=== PATIENT | male | born 1980 | race African-American/Black ===

== ENCOUNTER 2017-02-19 17:23 | Emergency (ER) | payer MEDICAID, MEDICARE ==
[~2017-02-19] VITALS: Ht 175.3 cm; Wt 95.5 kg
[~2017-02-19 17:23] MED LIST: LISI2.5T3 PO
[2017-02-19 17:59] VITALS: BP 133/59; PULSE 86; RESP 18; TEMP 98.7; O2SAT 97
--- NOTE | 2017-02-19 18:36 | PD ---
Physical Exam Time Seen by Provider: 18:35 Narrative 36 y/o male here for evaluation of chest tightness and syncopal event today. Vital signs reviewed. Seen at triage desk. Awaiting bed placement. Data Data Last Documented VS Vital Signs Date Time Temp Pulse Resp B/P Pulse Ox O2 Delivery O2 Flow Rate FiO2 02/19/17 17:59 98.7 86 18 133/59 97 Room Air [facility] Medical Record Reviewed: Yes Supervised Visit with JAMESON: Ky Ross Feb 19, 2017 18:36
--- NOTE | 2017-02-19 20:24 | RADRPT ---
EXAM DATE/TIME: 02/19/2017 20:13 [place] COMPARISON: No previous studies available for comparison. INDICATIONS : Chest pain MEDICAL HISTORY : Hypertension. SURGICAL HISTORY : None. ENCOUNTER: Initial ACUITY: 1 day PAIN SCORE: 8/10 LOCATION: Bilateral chest FINDINGS: The lungs are clear without infiltrate, nodule, or mass. There is no appreciable pleural effusion fo r technique. Heart and mediastinum are unremarkable. CONCLUSION: No acute cardiopulmonary disease. Joshua Mcgee MD on February 19, 2017 at 20:22 Board Certified Radiologist. This report was verified electronically.
[2017-02-19 21:30] VITALS: BP 144/66; PULSE 90; RESP 12; O2SAT 100
[2017-02-19] MEDS ORDERED: SODIUM CHLOR 0.9% 1000 ML INJ 1,000 ML IV ONE ×2 (21:30)
[2017-02-19] MEDS ORDERED: ONDANSETRON HCL 4 MG/2 ML VIAL IV ONE (21:30)
[2017-02-19 21:55] LABS: AUTOMATED NEUTROPHIL # 2.8 TH/MM3 (1.8-7.7); BASOPHIL % 0.6 % (0.0-2.0); EOSINOPHIL # 0.3 TH/MM3 (0-0.4); EOSINOPHIL % 6.1 % (0.0-4.0); HEMATOCRIT 37.3 % (39.0-51.0); HEMO FLAGS DIFF FINAL; LYMPH % 29.1 % (9.0-44.0); LYMPHOCYTE # 1.5 TH/MM3 (1.0-4.8); MEAN CELL VOLUME 88.4 FL (80.0-100.0); MEAN CORPUSCULAR HEMOGLOBIN 28.8 PG (27.0-34.0); MEAN CORPUSCULAR HGB CONC 32.6 % (32.0-36.0); MONO % 9.9 % (0.0-8.0); NEUT % 54.3 % (16.0-70.0); PLATELET COUNT 197 TH/MM3 (150-450); RED BLOOD COUNT 4.22 MIL/MM3 (4.50-5.90); RED CELL DISTRIBUTION WIDTH 13.8 % (11.6-17.2); WHITE BLOOD COUNT 5.1 TH/MM3 (4.0-11.0)
[2017-02-19 22:09] LABS: ALT (GPT) 22 U/L (12-78); ANION GAP 8 MEQ/L (5-15); AST (GOT) 14 U/L (15-37); BICARBONATE 25.9 MEQ/L (21.0-32.0); BLOOD UREA NITROGEN 11 MG/DL (7-18); CHLORIDE 105 MEQ/L (98-107); GLOMERULAR FILTRATION RATE 116 ML/MIN (>89); MAGNESIUM 2.1 MG/DL (1.5-2.5); POTASSIUM 3.5 MEQ/L (3.5-5.1); SODIUM (NA) 139 MEQ/L (136-145)
[2017-02-19 22:13] LABS: ALKALINE PHOSPHATASE 61 U/L (45-117); CREATINE KINASE 173 U/L (39-308); TOTAL BILIRUBIN ADULT 0.8 MG/DL (0.2-1.0)
[2017-02-19 22:26] LABS: CKMB 1.2 NG/ML (0.5-3.6)
[2017-02-19 22:47] VITALS: BP 132/60; PULSE 84; RESP 14; O2SAT 98
--- NOTE | 2017-02-19 22:50 | PD ---
HPI Chief Complaint: Chest Pain Time Seen by Provider: 21:23 Travel History International Travel<30 days: No Contact w/Intl Traveler<30days: No Traveled to known affect area: No History of Present Illness HPI So 36 year-old woman who presents emergency Department complaining of chest pain and shortness of breath that started while he was walking. States he was waiting for the bus when he got lightheaded, he dropped to his knees, and then passed out. States she doesn't really remember what happened. States it is very hot at that time. Afterwards she walked to the store and started having some chest pain. He called EMS and once he arrived into the emergency department he started to have some nausea and vomiting. He's had similar symptoms with heat stroke in the past. Review of systems is positive for cyst some increased stress. History Past Medical History Narrative Medical Diabetes Hypertension Tetanus Vaccination: Unknown Influenza Vaccination: No Past Surgical History Surgical History: No Previous Surgery Social History Alcohol Use: Yes (twice weekly beer all day) Tobacco Use: Yes (1/2 ppd) Allergies-Medications (Allergen,Severity, Reaction): Coded Allergies: No Known Allergies (Unverified , 02/19/17) Reported Meds & Prescriptions Reported Meds & Active Scripts Active Reported Lisinopril 2.5 mg (Lisinopril) 2.5 Mg Tab 1 Tab PO DAILY Review of Systems Except as stated in HPI: all other systems reviewed are Neg Physical Exam Narrative GENERAL: Well-appearing 36 year-old woman, no acute distress. SKIN: Focused skin assessment warm/dry. HEAD: Atraumatic. Normocephalic. EYES: Pupils equal and round. No scleral icterus. No injection or drainage. ENT: No nasal bleeding or discharge. Mucous membranes pink and moist. NECK: Trachea midline. No JVD. CARDIOVASCULAR: Regular rate and rhythm. No murmur appreciated. RESPIRATORY: No accessory muscle use. Clear to auscultation. Breath sounds equal bilaterally. GASTROINTESTINAL: Abdomen soft, non-tender, nondistended. Hepatic and splenic margins not palpable. MUSCULOSKELETAL: No obvious deformities. No clubbing. No cyanosis. No edema. NEUROLOGICAL: Awake and alert. No obvious cranial nerve deficits. Motor grossly within normal limits. Normal speech. PSYCHIATRIC: Appropriate mood and affect; insight and judgment normal. Data Data Last Documented VS Vital Signs Date Time Temp Pulse Resp B/P Pulse Ox O2 Delivery O2 Flow Rate FiO2 02/19/17 17:59 98.7 86 18 133/59 97 Room Air Orders Electrocardiogram (02/19/17 ) Ckmb (Isoenzyme) Profile (02/19/17 19:54) Complete Blood Count With Diff (02/19/17 19:54) Comprehensive Metabolic Panel (02/19/17 19:54) Magnesium (Mg) (02/19/17 19:54) Troponin I (02/19/17 19:54) Chest, Single Ap (02/19/17 19:54) Sodium Chlor 0.9% 1000 Ml Inj (Ns 1000 M (02/19/17 21:30) Sodium Chlor 0.9% 1000 Ml Inj (Ns 1000 M (02/19/17 21:30) Ondansetron Inj (Zofran Inj) (02/19/17 21:30) CKMB (02/19/17 21:17) CKMB% (02/19/17 21:17) Labs Laboratory Tests Test 02/19/17 21:17 White Blood Count 5.1 TH/MM3 Red Blood Count 4.22 MIL/MM3 Hemoglobin 12.1 GM/DL Hematocrit 37.3 % Mean Corpuscular Volume 88.4 FL Mean Corpuscular Hemoglobin 28.8 PG Mean Corpuscular Hemoglobin 32.6 % Concent Red Cell Distribution Width 13.8 % Platelet Count 197 TH/MM3 Mean Platelet Volume 10.1 FL Neutrophils (%) (Auto) 54.3 % Lymphocytes (%) (Auto) 29.1 % Monocytes (%) (Auto) 9.9 % Eosinophils (%) (Auto) 6.1 % Basophils (%) (Auto) 0.6 % Neutrophils # (Auto) 2.8 TH/MM3 Lymphocytes # (Auto) 1.5 TH/MM3 Monocytes # (Auto) 0.5 TH/MM3 Eosinophils # (Auto) 0.3 TH/MM3 Basophils # (Auto) 0.0 TH/MM3 CBC Comment DIFF FINAL Differential Comment Sodium Level 139 MEQ/L Potassium Level 3.5 MEQ/L Chloride Level 105 MEQ/L Carbon Dioxide Level 25.9 MEQ/L Anion Gap 8 MEQ/L Blood Urea Nitrogen 11 MG/DL Creatinine 0.89 MG/DL Estimat Glomerular Filtration 116 ML/MIN Rate Random Glucose 100 MG/DL Calcium Level 8.2 MG/DL Magnesium Level 2.1 MG/DL Total Bilirubin 0.8 MG/DL Aspartate Amino Transf 14 U/L (AST/SGOT) Alanine Aminotransferase 22 U/L (ALT/SGPT) Alkaline Phosphatase 61 U/L Total Creatine Kinase 173 U/L Creatine Kinase MB 1.2 NG/ML Troponin I LESS THAN 0.02 NG/ML Total Protein 7.5 GM/DL Albumin 4.0 GM/DL [facility] Medical Decision Making Medical Screen Exam Complete: Yes Emergency Medical Condition: Yes Interpretation(s) LABS: CBC remarkable for mild anemia. CMP is unremarkable. Troponin negative. Chest x-ray: Negative Differential Diagnosis Syncope, ACS, dissection, PE, heat stroke, other Narrative Course Medical decision making Well 36 year-old woman presents emergent department after an episode of syncope and some chest pain in the setting of standing in the heat. He looks well. EKG is reassuring. Chest x-ray and labs are negative. Patient likely with heat stroke. Low risk for ACS. Recommend outpatient follow-up. Diagnosis Primary Impression: Heat stroke Additional Impressions: Chest pain Syncope Additional Instructions: Follow-up with your primary doctor in the next one to 2 days. Return to the emergency department for any worsening chest pain, trouble breathing, or any other new or worsening symptoms. Med/Other Pt SpecificInfo: No Change to Meds Disposition: 01 DISCHARGE HOME Condition: Stable Terry Whitt MD Feb 19, 2017 22:50
--- NOTE | 2017-02-21 11:02 | EKG ---
Date Performed: 02/19/2017 Time Performed: 18:53:32 PTAGE: 36 years EKG: Sinus rhythm POSSIBLE LEFT ATRIAL ENLARGEMENT BORDERLINE ECG PREVIOUS TRACING : 01/04/2016 16.23 DOCTOR: Terry Parker Interpretating Date/Time 02/21/2017 10:56:21
== END 2017-02-19 23:17 | disposition home or self-care (01) ==
LOC: NEPE 17:23
DX: T67.0XXA Heatstroke and sunstroke, initial encounter (principal); R07.9 Chest pain, unspecified; R55 Syncope and collapse; E11.9 Type 2 diabetes mellitus without complications; I10 Essential (primary) hypertension; F17.200 Nicotine dependence, unspecified, uncomplicated; Z79.899 Other long term (current) drug therapy; X30.XXXA Exposure to excessive natural heat, initial encounter
CPT/HCPCS: 71010; 80053; 82550; 82552; 83735; 84484; 85025; 93005; 96374; 99285; J2405; J7030

== ENCOUNTER 2017-04-04 08:02 | Inpatient (IN) | payer SELFPAY ==
[~2017-04-04] VITALS: Ht 172.7 cm; Wt 99.5 kg
[2017-04-04 08:03] VITALS: BP 155/95; PULSE 95; RESP 20; TEMP 98.7; O2SAT 97
[2017-04-04 09:25] LABS: BASOPHIL % 0.3 % (0.0-2.0); EOSINOPHIL % 0.4 % (0.0-4.0); HEMATOCRIT 43.2 % (39.0-51.0); HEMO FLAGS DIFF FINAL; MEAN CELL VOLUME 89.5 FL (80.0-100.0); MEAN CORPUSCULAR HGB CONC 31.3 % (32.0-36.0); MONO % 10.4 % (0.0-8.0); NEUT % 78.9 % (16.0-70.0); PLATELET COUNT 226 TH/MM3 (150-450); RED BLOOD COUNT 4.83 MIL/MM3 (4.50-5.90); RED CELL DISTRIBUTION WIDTH 13.9 % (11.6-17.2); WHITE BLOOD COUNT 10.2 TH/MM3 (4.0-11.0)
[2017-04-04 09:42] LABS: ANION GAP 9 MEQ/L (5-15); BLOOD UREA NITROGEN 15 MG/DL (7-18); CHLORIDE 102 MEQ/L (98-107); GLOMERULAR FILTRATION RATE 84 ML/MIN (>89); POTASSIUM 3.7 MEQ/L (3.5-5.1); SODIUM (NA) 137 MEQ/L (136-145)
[2017-04-04 09:44] LABS: ALCOHOL LESS THAN 3 MG/DL (0-5)
--- NOTE | 2017-04-04 09:52 | PD ---
HPI . Suicide attempt Chief Complaint: Suicide Ideation/Attempt Time Seen by Provider: 08:42 Travel History International Travel<30 days: No Contact w/Intl Traveler<30days: No Traveled to known affect area: No History of Present Illness HPI This patient presents to us voluntarily following a suicide attempt at home. He was "talked down" by his and their blue prints trimmer. He was reportedly holding a gun to his head. He reports both auditory and visual hallucinations. He states that his memory has been very poor lately. He admits to mood swings in the recent past. He admits that he has been off his meds for 8 months. He also admits that he has been using drugs and alcohol. PFSH Past Medical History Hx Anticoagulant Therapy: No Anxiety: Yes Cardiovascular Problems: Yes (HTN) Chemotherapy: No Cerebrovascular Accident: No Diabetes: Yes Patient Takes Glucophage: Yes Hypertension: Yes Respiratory: No Tetanus Vaccination: < 5 Years Influenza Vaccination: Yes Past Surgical History Surgical History: No Previous Surgery Social History Alcohol Use: Yes (twice weekly beer all day) Tobacco Use: Yes (1/2 ppd) Substance Use: Yes (COCAINE) Allergies-Medications (Allergen,Severity, Reaction): Coded Allergies: No Known Allergies (Unverified , 04/04/17) Reported Meds & Prescriptions Reported Meds & Active Scripts Active No Active Prescriptions or Reported Medications Review of Systems Except as stated in HPI: all other systems reviewed are Neg Psychiatric: Positive: Anxiety, Depression, Suicidal Ideations, Disorder of Thought, Mood Disorder, Substance Abuse Physical Exam Narrative GENERAL: He makes good eye contact with the examiner. He is tearful. SKIN: Warm and dry. HEAD: Atraumatic. Normocephalic. EYES: Pupils equal and round. ENT: No nasal bleeding or discharge. Mucous membranes pink and moist. NECK: Trachea midline. CARDIOVASCULAR: Regular rate and rhythm. RESPIRATORY: No accessory muscle use. GASTROINTESTINAL: Abdomen soft, non-tender, nondistended. MUSCULOSKELETAL: No obvious deformities. No edema. NEUROLOGICAL: Awake and alert. No obvious cranial nerve deficits. Motor grossly within normal limits. Normal speech. PSYCHIATRIC: Depressed mood. Poor judgment. Data Data Last Documented VS Vital Signs Date Time Temp Pulse Resp B/P (MAP) Pulse Ox O2 Delivery O2 Flow Rate FiO2 04/04/17 08:44 94 18 04/04/17 08:44 98 Room Air 04/04/17 08:03 98.7 155/95 (115) Orders Orders Complete Blood Count With Diff (04/04/17 08:43) Basic Metabolic Panel (Bmp) (04/04/17 08:43) Psych Screen (04/04/17 08:43) Drug Screen, Random Urine (04/04/17 08:43) Alcohol (Ethanol) (04/04/17 08:43) Labs Laboratory Tests Test 04/04/17 09:00 White Blood Count 10.2 TH/MM3 Red Blood Count 4.83 MIL/MM3 Hemoglobin 13.5 GM/DL Hematocrit 43.2 % Mean Corpuscular Volume 89.5 FL Mean Corpuscular Hemoglobin 28.0 PG Mean Corpuscular Hemoglobin Concent 31.3 % Red Cell Distribution Width 13.9 % Platelet Count 226 TH/MM3 Mean Platelet Volume 10.2 FL Neutrophils (%) (Auto) 78.9 % Lymphocytes (%) (Auto) 10.0 % Monocytes (%) (Auto) 10.4 % Eosinophils (%) (Auto) 0.4 % Basophils (%) (Auto) 0.3 % Neutrophils # (Auto) 8.0 TH/MM3 Lymphocytes # (Auto) 1.0 TH/MM3 Monocytes # (Auto) 1.1 TH/MM3 Eosinophils # (Auto) 0.0 TH/MM3 Basophils # (Auto) 0.0 TH/MM3 CBC Comment DIFF FINAL Differential Comment Blood Urea Nitrogen 15 MG/DL Creatinine 1.18 MG/DL Random Glucose 129 MG/DL Calcium Level 9.0 MG/DL Sodium Level 137 MEQ/L Potassium Level 3.7 MEQ/L Chloride Level 102 MEQ/L Carbon Dioxide Level 26.0 MEQ/L Anion Gap 9 MEQ/L Estimat Glomerular Filtration Rate 84 ML/MIN Urine Opiates Screen NEG Urine Barbiturates Screen NEG Urine Amphetamines Screen NEG Urine Benzodiazepines Screen NEG Urine Cocaine Screen POS Urine Cannabinoids Screen NEG Ethyl Alcohol Level LESS THAN 3 MG/DL MDM Medical Decision Making Medical Screen Exam Complete: Yes Emergency Medical Condition: Yes Differential Diagnosis Differential diagnosis includes but is not limited to depression with suicidal gesture, suicide attempt, suicidal ideation, attention seeking behavior. Narrative Course This patient presents after a suicidal gesture. He was holding a gun to his head. He will be medically cleared and then referred to psychiatry. He is currently voluntary but will be Smith Acted if he decides to leave. CBC & BMP Diagram 04/04/17 09:00 Calcium Level 9.0 Alcohol level is negative. Drug screen is positive for cocaine. This patient is medically clear for psychiatric evaluation. Diagnosis Primary Impression: Suicide gesture Qualified Codes: X83.8XXA - Intentional self-harm by other specified means, initial encounter Scripts No Active Prescriptions or Reported Meds Condition: Wilma Tellez MD Apr 04, 2017 09:52
[2017-04-04 12:28] VITALS: BP 143/70; PULSE 81; RESP 18; O2SAT 97
[2017-04-04 16:41] VITALS: BP 152/94; PULSE 79; RESP 18; O2SAT 97
[2017-04-04 18:03] VITALS: BP 149/85; PULSE 66; RESP 18; O2SAT 96
[2017-04-04] MEDS ORDERED: diphenhydrAMINE HCL 50 MG CAP PO ONE (21:15)
[2017-04-04] MEDS ORDERED: ACETAMINOPHEN 325 MG TAB PO ONE (21:15)
[2017-04-04 22:55] VITALS: BP 135/87; PULSE 86; RESP 18; O2SAT 99
[2017-04-05 06:53] VITALS: BP 153/71; PULSE 81; RESP 18; O2SAT 98
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
[2017-04-05] MEDS ORDERED: ALUMINUM/MAGNESIUM/SIMETH 30 ML CUP PO PRN (09:30)
[2017-04-05] MEDS ORDERED: MAGNESIUM HYDROXIDE SUSP 30 ML CUP PO PRN (09:30)
[2017-04-05] MEDS ORDERED: ACETAMINOPHEN 325 MG TAB PO PRN (09:30)
[2017-04-05 09:45] VITALS: BP 153/71; PULSE 81; RESP 18; O2SAT 98
[2017-04-05 11:41] VITALS: BP 134/78; PULSE 66; RESP 18; TEMP 98.1; O2SAT 98
[2017-04-05] MEDS ORDERED: MISCELLANEOUS PHARMACY INFORMATION OTHER ONE (15:00)
[2017-04-05 16:12] VITALS: BP 133/66; PULSE 60; RESP 18; TEMP 98.1; O2SAT 95
[2017-04-06 06:11] VITALS: BP 131/66; PULSE 78; RESP 18; TEMP 97.9; O2SAT 98
[2017-04-06 08:42] LABS: ANION GAP 8 MEQ/L (5-15); BICARBONATE 26.2 MEQ/L (21.0-32.0); BLOOD UREA NITROGEN 14 MG/DL (7-18); CHLORIDE 103 MEQ/L (98-107); GLOMERULAR FILTRATION RATE 88 ML/MIN (>89); POTASSIUM 3.7 MEQ/L (3.5-5.1); SODIUM (NA) 137 MEQ/L (136-145)
[2017-04-06 08:46] LABS: HDL CHOLESTEROL 40.3 MG/DL (40.0-60.0); LDL CHOLESTEROL 107 MG/DL (0-99)
[2017-04-06] MEDS ORDERED: PNEUMOCOCCAL POLYVALENT INJ 25 MCG/0.5 ML SYR IM ONE (09:00)
--- NOTE | 2017-04-06 10:37 | HHI.HP ---
Provisional Diagnosis Admission Date Apr 05, 2017 at 09:35 [place] I. 1. Major depressive disorder, recurrent, severe without psychotic features 2. Posttraumatic stress disorder, chronic 3. Polysubstance abuse including alcohol and cocaine [place] II. Deferred Certification of Person's Competence To Provide Express and Informed Consent I have personally examined Balaji Larson , a person being served at [facility] on, Apr 06, 2017 10:36. Express and informed consent means consent voluntarily given in writing, by a competent person, after sufficient explanation and disclosure of the subject matter involved to enable the person to make a knowing and willful decision without any element of force, fraud, deceit, duress, or other form of constraint or coercion. This person is 18 years of age or older, is not now known to be incompetent to consent to treatment with a guardian advocate, and does not have a health care surrogate or proxy currently making medical treatment decisions. I have found this person to be one of the following: [X] Competent to provide express and informed consent, as defined above, for voluntary admission to this facility and is competent to provide express and informed consent for treatment. He/she has the consistent capacity to make well reasoned, willful, and knowing decisions concerning his or her medical or mental health treatment. The person fully and consistently understands the purpose of the admission for examination/placement and is fully capable of personally exercising all rights assured under [place] [] Incompetent to provide express and informed consent to voluntary admission, and this is incompetent to provide express and informed consent to treatment. The person must be transferred to involuntary status and a petition for a guardian advocate filed with the Circuit Court. [] Refusing to provide express and informed consent to voluntary admission but is competent to provide express and informed consent for treatment. The person must be discharged or transferred to involuntary status. Form shall be completed within 24 hours of a person's arrival at the receiving facility and filed in the clinical record of each person: 1. Admitted on a voluntary basis 2. Permitted to provide express and informed consent to his/her own treatment 3. Allowed to transfer from involuntary to voluntary status 4. Prior to permitting a person to consent to his or her own treatment after having been previously found incompetent to consent to treatment. History of Present Illness Capacity: Has Capacity HPI Mr. Larson is a 36-year-old male with a reported history of posttraumatic stress disorder, depression and bipolar disorder who presented voluntarily to the emergency department after what sounds like an aborted suicide attempt with a gun. He was placed under a Smith act by the ED provider. He was evaluated by psychiatric nurse practitioner. Reviewing the electronic medical record, I see no prior psychiatric contact within our system. Patient seen and examined with nurse. Chart reviewed. Case discussed with nursing staff. On my examination today, the patient reports that he has been dealing with a lot of hypervigilance and reexperiencing related [place]doing a lot of things I'm not proud of." He says that his sleep has been disrupted for several months by nightmares. He often uses alcohol in an attempt to get to sleep. He describes some generalized anxiety and several psychosocial stressors. He describes visual phenomena that sound more like misperceptions, chiefly at night, for example seeing a skull in a shadow in his bedroom. These perceptions and context seem more related to hypervigilance from his PTSD. No auditory hallucinations or other hallucinatory material. Mood is depressed. Appetite increased. Somewhat fatigued. Denies any homicidal ideation but remains somewhat ambivalent regarding suicidal ideation. He denies any urge to hurt himself on the unit. No delusional material. No hypomanic or manic symptoms. He says that he has been off of his psychotropic medications for 8 or 9 months. Remainder of the psychiatric ROS is negative. Patient complains of lower right and left abdominal pain, steady and not associated with eating. He denies any bowel issues. Denies any constipation/diarrhea/blood in stool. Past psychiatric history: The patient reports a history of psychiatric treatment in [place]. He has several previous psychiatric admissions and endorses suicide attempts in the past by hanging. He also endorses a history of nonsuicidal self-injurious behavior by cutting. He cannot definitively recall previous medication trials besides Wellbutrin/Risperdal as this was the most recent but not necessarily the most efficacious. He has tried some SSRIs in the past he thinks. Review of Systems Except as stated in HPI: all other systems reviewed are Neg Past Psych History Psychological trauma history See above Violence risk - others (6 mos) Indeterminate but suspect lower risk. Alludes to a violent history but denies any homicidal ideation at this time. No evidence of psychosis at this time. Violence risk - self (6 mos) Elevated. Recent aborted suicide attempt. Ambivalent regarding SI. Mood remains depressed. Substance Abuse History Drugs/Alcohol past 12 months Reports that he is drinking a 4 pack of beer daily, tall boys. He also drinks vodka besides. He endorses a history of DTs but denies a history of seizure. He uses powder cocaine. He is interested in getting into a 12 step program. His longest sober time was 2 years. Denies other substance use. Past Family Social History Coded Allergies: No Known Allergies (Unverified , 04/04/17) Past Medical History Endorses a history of diabetes mellitus. No Active Prescriptions or Reported Meds Current Medications Medications (Trade) Dose Ordered Sig/Alex Route Start Time Stop Time Status Last Admin (Tylenol) 650 mg Q4H PRN PO 04/05/17 09:30 (Milk Of Magnesia Liq) 30 ml DAILY PRN PO 04/05/17 09:30 (Mag-Al Plus Susp Liq) 30 ml Q6H PRN PO 04/05/17 09:30 Family History Patient is unsure of his family psychiatric history. Social History Patient reports that he was recently evicted. He works as a cook at [employer] but says that this provides him with insufficient income. He is but says that the relationship is somewhat alvin, at least in part because of his irritability. He has 4 children and one stepchild. They are presently residing with the patient's mother. He denies any or legal history. Denies any access to guns or firearms at this time. He describes himself as "sometimes" pentecostal. Patient's Strengths (min. 2) Intelligent. Verbally fluent. Physical Exam Physical examination completed by ED provider. On my examination today, the patient appears to be in no acute physical distress. No motor abnormalities noted. No signs of withdrawal noted. Labs and vitals reviewed: Vital Signs Vital Signs Date Time Temp Pulse Resp B/P (MAP) Pulse Ox O2 Delivery O2 Flow Rate FiO2 04/06/17 06:11 97.9 78 18 131/66 (87) 98 04/05/17 09:45 Room Air Lab Results Item Value Date Time White Blood Count 10.2 TH/MM3 04/04/17 0900 Hemoglobin 13.5 GM/DL 04/04/17 09 Platelet Count 226 TH/MM3 04/04/17 09 Sodium Level 137 MEQ/L 04/06/17 0708 Potassium Level 3.7 MEQ/L 04/06/17 07 Chloride Level 103 MEQ/L 04/06/17 07 Carbon Dioxide Level 26.2 MEQ/L 04/06/17 07 Blood Urea Nitrogen 14 MG/DL 04/06/17 0708 Creatinine 1.13 MG/DL 04/06/17 07 Random Glucose 131 MG/DL H 04/06/17 0708 Urine Cocaine Screen POS H 04/04/17 09 Ethyl Alcohol Level LESS THAN 3 MG/DL 04/04/17 09 Hemoglobin A1c is presently pending Mental Status Examination Patient is casually dressed. He is well groomed. He is awake and alert and oriented to person and hospital at least. No evidence of delirium. No motor abnormalities noted. Speech is within normal limits for rate, tone and volume. Lying which and fund of knowledge average. Focus and concentration seem a little scattered. Memory grossly intact on clinical exam. Mood depressed. Affect restricted. Thought process linear. No loosening of associations. No delusions elicited. Denies audiovisual hallucinations. Ambivalent regarding suicidal ideation. Denies urge to hurt himself on the inpatient psychiatric unit. Denies homicidal ideation. Insight and judgment are poor presently. Assessment & Plan Problem List: (1) Major depressive disorder ICD Codes: F32.9 - Major depressive disorder, single episode, unspecified Status: Acute (2) Chronic post-traumatic stress disorder (PTSD) ICD Codes: F43.12 - Post-traumatic stress disorder, chronic Status: Chronic (3) Polysubstance abuse ICD Codes: F19.10 - Other psychoactive substance abuse, uncomplicated Status: Chronic Assessment & Plan This is a 36-year-old male with psychiatric history as detailed above who is presently admitted under a Smith act. On my examination today, the patient describes ongoing depressive symptoms as well as symptoms likely related to posttraumatic stress disorder. He does have comorbid substance use issues. He remains ambivalent regarding ongoing suicidal ideation , and especially given the high lethality of his aborted suicide attempt, he requires ongoing psychiatric hospitalization at this time for safety, observation and stabilization. Admit inpatient. Voluntary status. Check a TSH. For patient's depression and core PTSD symptoms, start Celexa 20 mg daily with plans to titrate to effect. For nighttime hyperarousal and reexperiencing, start prazosin 1 mg at bedtime with blood pressure parameters. R/B/A of medications discussed with patient. CIWA with Ativan as needed for withdrawal. Thiamine and folate. Seizure and fall precautions. Atarax as needed for anxiety. Consult with the hospitalist for medical management. I will start Accu-Cheks and sliding scale insulin for the management of patient's hyperglycemia. Vitals every shift. Counselor to see. Disposition planning. Estimated length of stay: 5-7 days. Discharge Planning pending psychiatric stabilization. Request HC Surrog/Guard Advoc?: No Problem Qualifiers (1) Major depressive disorder: Qualified Codes: F33.2 - Major depressive disorder, recurrent severe without psychotic features Vitaliy Bell MD Apr 06, 2017 10:37
[2017-04-06] MEDS: NICOTINE 21 MG/24 HR PATCH T-DERMAL SCH (10:45)
[2017-04-06] MEDS ORDERED: DEXTROSE 50% IN WATER 50 ML VIAL(D50) IV PRN (10:45)
[2017-04-06] MEDS ORDERED: GLUCAGON 1 MG/ML VIAL OTHER PRN (10:45)
[2017-04-06] MEDS: INSULIN ASPART SUPPLEMENTAL SCALE SQ SCH ×3 (11:00→21:00)
[2017-04-06] MEDS: REMOVE OLD PATCH T-DERMAL SCH (11:06)
[2017-04-06] MEDS ORDERED: LORazepam 1 MG TAB PO PRN (12:15)
[2017-04-06] MEDS ORDERED: LORazepam 2 MG/ML VIAL IV PUSH PRN ×4 (12:15)
[2017-04-06] MEDS ORDERED: FLUMAZENIL 0.5 MG/5 ML VIAL IV PUSH PRN (12:15)
[2017-04-06] MEDS ORDERED: LORazepam 2 MG TAB PO PRN (12:15)
[2017-04-06] MEDS: CITALOPRAM HYDROBROMIDE 20 MG TAB PO SCH (12:15)
[2017-04-06] MEDS: PANTOPRAZOLE SOD 40 MG DELAYED RELEASE TAB PO SCH (13:45)
[2017-04-06 13:57] LABS: INDIRECT BILIRUBIN 0.5 MG/DL (0.0-0.8); TOTAL BILIRUBIN ADULT 0.7 MG/DL (0.2-1.0)
--- NOTE | 2017-04-06 14:09 | PD.CONS ---
HPI Service [facility] Consult Requested By Dr. Bell Reason for Consult Medical management Primary Care Physician No Primary Care Physician Diagnoses: History of Present Illness The pt is a 36 year old male with a past medical history of diabetes, HTN and depression who is presenting to the hospital after his suicide attempt. The patient said that he had multiple life stressors including financial stressors and was going to shoot himself. He felt like he was failing his family. He said that he had a gun in his hand but his brother stopped him from killing himself. The patient currently is not happy to be alive but he will try to figure things out while he is here in the psychiatry unit. He also mentions that he has had some abdominal pain for the past 3 days. The pain is located on the left lower part of his stomach. He says the pain is a 2 out of 10 and sometimes it'll jump up to a 4 out of 10 in severity. He does associate it with acid reflux. He said he used to be on acid reflux medications but is no longer on them. He does endorse a burning sensation in his throat every once in a while. The patient has some concerns about cirrhosis of the liver as he drinks a lot and somebody mentioned that he might be at risk for it. He was wondering if his abdominal distention was a sign of liver failure. Review of Systems Except as stated in HPI: all other systems reviewed are Neg Past Family Social History Allergies: Coded Allergies: No Known Allergies (Unverified , 04/04/17) Past Medical History DM HTN GERD Active Ordered Medications Current Medications Medications (Trade) Dose Ordered Sig/Alex Route Start Time Stop Time Status Last Admin (Tylenol) 650 mg Q4H PRN PO 04/05/17 09:30 (Milk Of Magnesia Liq) 30 ml DAILY PRN PO 04/05/17 09:30 (Mag-Al Plus Susp Liq) 30 ml Q6H PRN PO 04/05/17 09:30 (Habitrol 21 Mg Patch.24 Hr) 1 patch DAILY T-DERMAL 04/06/17 10:45 04/06/17 10:45 Miscellaneous Information 1 DAILY T-DERMAL 04/07/17 09:00 (D50w (Vial) Inj) 50 ml UNSCH PRN IV 04/06/17 10:45 (Glucagon Inj) 1 mg UNSCH PRN OTHER 04/06/17 10:45 (NovoLOG SUPPLEMENTAL SCALE) 1 ACHS SLIDING SCALE SQ 04/06/17 11:00 (Romazicon Inj) 0.2 mg Q1M PRN IV PUSH 04/06/17 12:15 (Ativan) 1 mg Q4H PRN PO 04/06/17 12:15 (Ativan Inj) 1 mg Q4H PRN IV PUSH 04/06/17 12:15 (Ativan) 2 mg Q2H PRN PO 04/06/17 12:15 (Ativan Inj) 2 mg Q2H PRN IV PUSH 04/06/17 12:15 (Ativan Inj) 2 mg Q1H PRN IV PUSH 04/06/17 12:15 (Ativan Inj) 2 mg Q15M PRN IV PUSH 04/06/17 12:15 (Vitamin B1) 100 mg DAILY PO 04/07/17 09:00 (Folate) 1 mg DAILY PO 04/07/17 09:00 (CeleXA) 20 mg DAILY PO 04/06/17 12:15 (Minipress) 1 mg HS PO 04/06/17 21:00 (Atarax) 50 mg Q6H PRN PO 04/06/17 12:15 Family History DM Social History He smokes half a pack to one pack daily. He drinks at least a 4-pack of [place] regularly. He uses cocaine every once in a while. Physical Exam Vital Signs Vital Signs Date Time Temp Pulse Resp B/P (MAP) Pulse Ox O2 Delivery O2 Flow Rate FiO2 04/06/17 06:11 97.9 78 18 131/66 (87) 98 04/05/17 16:12 98.1 60 18 133/66 (88) 95 Physical Exam GENERAL: This is a well-nourished, well-developed patient, in no apparent distress. SKIN: No rashes, ecchymoses or lesions. Cool and dry. HEAD: Atraumatic. Normocephalic. No temporal or scalp tenderness. EYES: Pupils equal round and reactive. Extraocular motions intact. No scleral icterus. No injection or drainage. ENT: Nose without bleeding, purulent drainage or septal hematoma. Throat without erythema, tonsillar hypertrophy or exudate. Uvula midline. Airway patent. NECK: Trachea midline. No JVD or lymphadenopathy. Supple, nontender, no meningeal signs. CARDIOVASCULAR: Regular rate and rhythm without murmurs, gallops, or rubs. RESPIRATORY: Clear to auscultation. Breath sounds equal bilaterally. No wheezes , rales, or rhonchi. GASTROINTESTINAL: Abdomen soft, nondistended. No hepato-splenomegaly, or palpable masses. No guarding. Slightly tender in the RUQ and LLQ. MUSCULOSKELETAL: Extremities without clubbing, cyanosis, or edema. No joint tenderness, effusion, or edema noted. NEUROLOGICAL: Awake and alert. Cranial nerves II through XII intact. Motor and sensory grossly within normal limits. Five out of 5 muscle strength in all muscle groups. Normal speech. PSYCH: Mood and affect appropriate. Laboratory Laboratory Tests Test 04/06/17 07:08 Blood Urea Nitrogen 14 Creatinine 1.13 Random Glucose 131 Calcium Level 8.3 Sodium Level 137 Potassium Level 3.7 Chloride Level 103 Carbon Dioxide Level 26.2 Anion Gap 8 Estimat Glomerular Filtration Rate 88 Triglycerides Level 167 Cholesterol Level 181 LDL Cholesterol 107 HDL Cholesterol 40.3 Cholesterol/HDL Ratio 4.49 Result Diagram: 04/04/17 0900 04/06/17 0708 Assessment and Plan Assessment and Plan Suicidal ideation The pt was going to shoot himself with a gun. - management per psychiatry. Abdominal pain/ GERD Ongoing for three days prior to admission. Located in the left flank area. Possibly s/t GERD, which he has a history of. Possibly s/t PUD as he drinks quite heavily. - start a PPI. - check LFTs, lipase. - alcohol cessation instruction. Nicotine dependence The pt smokes a pack daily. - nicotine patch as needed. - smoking cessation instruction. DM Seems to be well controlled. - insulin sliding scale. - A1c pending. PPx: Ambulation Discussed Condition With Pt, nurse Brian Jay DO Apr 06, 2017 14:09
--- NOTE | 2017-04-06 14:29 | EKG ---
Date Performed: 04/06/2017 Time Performed: 09:38:49 PTAGE: 36 years EKG: SINUS BRADYCARDIA SEPTAL MYOCARDIAL INFARCTION , OF INDETERMINATE AGE ABNORMAL ECG PREVIOUS TRACING : 02/19/2017 18.53 Compared to prior tracing no significant change DOCTOR: Joey Garcia Interpretating Date/Time 04/06/2017 14:26:17
[2017-04-06 15:56] LABS: HEMOGLOBIN A1a 1.5 %; HEMOGLOBIN A1b 1.4 %; HEMOGLOBIN Ao 85.9 %; HEMOGLOBIN P3 3.4 %
[2017-04-06 16:48] VITALS: BP 160/78; PULSE 64; RESP 18; TEMP 98.2; O2SAT 97
[2017-04-06] MEDS: hydrOXYzine HCL 50 MG TAB PO PRN (19:12)
[2017-04-06] MEDS: PRAZOSIN HCL 1 MG CAP PO SCH (21:00)
[2017-04-07 05:44] VITALS: BP 130/60; PULSE 70; RESP 20; TEMP 98.2; O2SAT 99
[2017-04-07 06:06] VITALS: BP 130/60; PULSE 70; RESP 20; TEMP 98.2; O2SAT 99
[2017-04-07] MEDS: INSULIN ASPART SUPPLEMENTAL SCALE SQ SCH ×4 (06:43→21:53)
[2017-04-07] MEDS: FOLIC ACID 1 MG TAB PO SCH (08:39)
[2017-04-07] MEDS: THIAMINE HCL 100 MG TAB PO SCH (08:39)
[2017-04-07] MEDS: NICOTINE 21 MG/24 HR PATCH T-DERMAL SCH (08:39)
[2017-04-07] MEDS: PANTOPRAZOLE SOD 40 MG DELAYED RELEASE TAB PO SCH (08:39)
[2017-04-07] MEDS: CITALOPRAM HYDROBROMIDE 20 MG TAB PO SCH (08:39)
--- NOTE | 2017-04-07 13:25 | HHI.PYPN ---
Subjective Remarks Patient seen and examined. Chart reviewed. Case discussed with treatment team. Per nursing staff, patient has not been scoring on the CIWA scale. No behavioral problems on the unit. Occupational therapist notes that the patient is not attending many groups. On my examination today, the patient complains of ongoing depression and ruminative thoughts. He says that he feels somewhat agitated and irritable. No SI or HI at this time. He does describe some paranoia and feels like people are watching him. Continues to endorse visual phenomena of shadows. No auditory hallucinations. We discussed adding back an antipsychotic medication, and after discussion of the relative merits of each we settle on Seroquel. Denies side effects from medications. No physical complaints besides some mild subjective shakiness. Review of Systems Except as stated in HPI: all other systems reviewed are Neg Objective Alert: Yes [place]: Person, Place, Date, Situation Mood: Depressed Affect: Restricted (somewhat irritable) Memory Intact: Comment (intact) Hallucinations: Auditory (none), Visual (shadows) Delusions: No Delusion Type: Other (no delusions) Suicidal: Ideation (no SI) Homicidal: Ideation (no HI) Insight/Judgment Poor Remarks No motor abnormalities noted. Thought process linear. Speech within normal limits for rate, tone and volume. Grooming and hygiene fair. Steady gait and station. No signs of withdrawal noted. Labs Labs reviewed. TFTs within normal limits. LFTs unremarkable. Vitals/IOs Vital Signs Date Time Temp Pulse Resp B/P (MAP) Pulse Ox O2 Delivery O2 Flow Rate FiO2 04/07/17 06:06 98.2 70 20 130/60 (83) 99 04/05/17 09:45 Room Air Assessment & Plan Problem List: (1) Major depressive disorder ICD Codes: F32.9 - Major depressive disorder, single episode, unspecified Status: Acute (2) Chronic post-traumatic stress disorder (PTSD) ICD Codes: F43.12 - Post-traumatic stress disorder, chronic Status: Chronic (3) Polysubstance abuse ICD Codes: F19.10 - Other psychoactive substance abuse, uncomplicated Status: Chronic Assessment & Plan Possibly some mild paranoia. Add in Seroquel 25 mg twice daily. R/B/A d/w pt. Continue Celexa and prazosin as ordered. Continue to monitor on the inpatient unit. Continue other medications and care as ordered. Justification for Cont. Inpt. Medication changes in process. High risk for decompensation in less restrictive environment. Discharge Planning Pending psychiatric stabilization. I have asked that counselor to clarify the patient's eventual discharge location and also to ensure that any firearms and other potential means of self-harm have been secured from that location. Request HC Surrog/Guard Advoc?: No Problem Qualifiers (1) Major depressive disorder: Qualified Codes: F33.2 - Major depressive disorder, recurrent severe without psychotic features Vitaliy Bell MD Apr 07, 2017 13:25
[2017-04-07 18:09] VITALS: BP 145/85; PULSE 70; RESP 19; TEMP 97.2; O2SAT 97
[2017-04-07] MEDS: QUEtiapine FUMARATE 25 MG TAB PO SCH (20:19)
[2017-04-07] MEDS: PRAZOSIN HCL 1 MG CAP PO SCH (20:19)
[2017-04-08] MEDS: INSULIN ASPART SUPPLEMENTAL SCALE SQ SCH ×4 (05:55→21:00)
[2017-04-08 06:26] VITALS: BP 103/64; PULSE 69; RESP 16; TEMP 97.8; O2SAT 99
--- NOTE | 2017-04-08 08:52 | PD.TTN ---
Patient Problems 1. Discharge planning 2. Medication compliance 3. Knowledge deficit 4. Lack of coping skills Progress Toward Goals Provider Present: Dr. Fabby Bell Provider Input: Patient is having some medication adjustments and is not endorsing side effects. Nurse(s) Present: Ella Nurse(s) Input: patient has had no behavioral issues on the unit and is noted to be isolative to his room. patient is cooperative and calm with treatment Psychiatric Counselors Present: ECSAR Liu Psych Therapist Input: Patient is isolative to room and is often seen sleeping. Counselor has spoke with family members to secure gun is out of home and out of patient's reach. Working on realistic discharge plan. Neda BrandtAly Apr 08, 2017 08:52
[2017-04-08] MEDS: REMOVE OLD PATCH T-DERMAL SCH (09:00)
[2017-04-08] MEDS: THIAMINE HCL 100 MG TAB PO SCH (09:19)
[2017-04-08] MEDS: NICOTINE 21 MG/24 HR PATCH T-DERMAL SCH (09:20)
[2017-04-08] MEDS: PANTOPRAZOLE SOD 40 MG DELAYED RELEASE TAB PO SCH (09:20)
[2017-04-08] MEDS: QUEtiapine FUMARATE 25 MG TAB PO SCH ×2 (09:20→21:00)
[2017-04-08] MEDS: CITALOPRAM HYDROBROMIDE 20 MG TAB PO SCH (09:20)
[2017-04-08] MEDS: FOLIC ACID 1 MG TAB PO SCH (09:20)
--- NOTE | 2017-04-08 11:56 | HHI.PYPN ---
Subjective Remarks Patient seen and examined with counselor. Chart reviewed. Case discussed with nursing staff. On my examination today, the patient complains of ongoing low mood. Sleep is somewhat improved. He denies SI but continues to be unable to contract for safety outside of the hospital setting. Some residual paranoia. Concentration remains little poor. Denies side effects from medications. No physical complaints. Review of Systems Except as stated in HPI: all other systems reviewed are Neg Objective Alert: Yes [place]: Person, Place, Date, Situation Mood: Depressed Affect: Restricted Memory Intact: Comment (intact) Hallucinations: Other (no hallucinations) Delusions: Yes Delusion Type: Other (some ongoing paranoia) Suicidal: Ideation (denies SI but cannot contract for safety) Homicidal: Ideation (no HI) Insight/Judgment Poor Remarks Thought process slowed but linear. Speech a little slow with respect to rate but otherwise within normal limits for tone and volume. Grooming and hygiene fair. No motor abnormalities noted. Labs Labs reviewed. Vitals/IOs Vital Signs Date Time Temp Pulse Resp B/P (MAP) Pulse Ox O2 Delivery O2 Flow Rate FiO2 04/08/17 06:26 97.8 69 16 103/64 (77) 99 04/05/17 09:45 Room Air Assessment & Plan Problem List: (1) Major depressive disorder ICD Codes: F32.9 - Major depressive disorder, single episode, unspecified Status: Acute (2) Chronic post-traumatic stress disorder (PTSD) ICD Codes: F43.12 - Post-traumatic stress disorder, chronic Status: Chronic (3) Polysubstance abuse ICD Codes: F19.10 - Other psychoactive substance abuse, uncomplicated Status: Chronic Assessment & Plan Titrate Celexa to 30 mg daily to target low mood. Titrate Seroquel to 50 mg twice daily to target reported paranoia. Continue to monitor on the inpatient unit. Encourage participation in groups and unit activities. Continue other medications and care as ordered. Justification for Cont. Inpt. Medication changes in process. Risk for decompensation in less restrictive environment. Discharge Planning Pending psychiatric stabilization. Request HC Surrog/Guard Advoc?: No Problem Qualifiers (1) Major depressive disorder: Qualified Codes: F33.2 - Major depressive disorder, recurrent severe without psychotic features Vitaliy Bell MD Apr 08, 2017 11:56
--- NOTE | 2017-04-08 13:21 | HHI.PR ---
Subjective Remarks Follow up for abdominal pain. Patient is currently doing well. However, he still has some pain over his left lower quadrant. Denies any nausea, vomiting. Tolerating diet well. He does report having constipation. Objective Vitals Vital Signs Date Time Temp Pulse Resp B/P (MAP) Pulse Ox O2 Delivery O2 Flow Rate FiO2 04/08/17 06:26 97.8 69 16 103/64 (77) 99 04/07/17 18:09 97.2 70 19 145/85 (105) 97 I/O 04/07/17 04/07/17 04/07/17 04/08/17 04/08/17 04/08/17 07:00 15:00 23:00 07:00 15:00 23:00 Intake Total 720 ml Balance 720 ml Intake Oral 720 ml Result Diagram: 04/04/17 0900 04/06/17 0708 Objective Remarks GENERAL: AOX3. NAD. SKIN: Warm and dry. HEAD: Normocephalic. EYES: No scleral icterus. No injection or drainage. NECK: Supple, trachea midline. No JVD or lymphadenopathy. CARDIOVASCULAR: Regular rate and rhythm without murmurs, gallops, or rubs. RESPIRATORY: Breath sounds equal bilaterally. No accessory muscle use. GASTROINTESTINAL: Abdomen appears to be somewhat distended, mildly tender on palpation over LLQ MUSCULOSKELETAL: No cyanosis, or edema. BACK: Nontender without obvious deformity. No CVA tenderness. A/P Assessment and Plan Mr. Larson is a pleasant 36 year old male who is currently under the care of psychiatry service due to suicidal ideations using a gun. - Abdominal pain - GERD - Lipase, LFTs unremarkable. - Patient's abdominal pain is likely due to constipation - Advised patient to use laxatives. We will obtain a KUB. - Will place patient on various laxatives - can be used depending on response. - Continue PPI. - Nicotine dependence - Continue Nicotine patch. - Pre-diabetes HbA1C 5.6. - Once abdominal symptoms resolve, metformin 500mg BID could be considered to prevent/delay onset of diabetes. - Continue sliding scale insulin for now. Full code. Ambulation. Servando Mancia DO Apr 08, 2017 13:21
[2017-04-08 18:21] VITALS: BP 161/92; PULSE 68; RESP 17; TEMP 98.1; O2SAT 98
[2017-04-08] MEDS: PRAZOSIN HCL 1 MG CAP PO SCH (21:00)
[2017-04-08] MEDS ORDERED: BISACODYL 10 MG SUPP RECTAL PRN (21:00)
[2017-04-08] MEDS: DOCUSATE SODIUM 50 MG/SENNA 8.6 MG TAB PO SCH (21:00)
[2017-04-08] MEDS ORDERED: LACTULOSE SYRUP 20 GM/30 ML CUP PO PRN (21:00)
[2017-04-08] MEDS ORDERED: SENNOSIDES 8.6 MG TAB PO PRN (21:00)
[2017-04-08] MEDS ORDERED: MAGNESIUM HYDROXIDE SUSP 30 ML CUP PO PRN (21:00)
--- NOTE | 2017-04-08 22:39 | RADRPT ---
EXAM DATE/TIME: 04/08/2017 22:14 [place] COMPARISON: No previous studies available for comparison. INDICATIONS : Patient complains of abdominal pain and vomiting. MEDICAL HISTORY : None. SURGICAL HISTORY : None. ENCOUNTER: Initial ACUITY: 1 week PAIN SCORE: 8/10 LOCATION: Abdomen FINDINGS: Supine view of the abdomen was performed. The abdominal bowel gas pattern is normal. No abnormal ma sses, calcifications, or organomegaly is seen. The osseous structures are unremarkable. CONCLUSION: Normal examination. Tian Lopez MD on April 08, 2017 at 22:37 Board Certified Radiologist. This report was verified electronically.
[2017-04-08] MEDS ORDERED: GABAPENTIN 100 MG CAP PO ONE (22:45)
[2017-04-09 05:34] VITALS: BP 90/52; PULSE 66; RESP 17; TEMP 97.4; O2SAT 97
[2017-04-09] MEDS: INSULIN ASPART SUPPLEMENTAL SCALE SQ SCH ×4 (06:27→20:26)
[2017-04-09] MEDS: QUEtiapine FUMARATE 25 MG TAB PO SCH ×2 (08:45→20:23)
[2017-04-09] MEDS: DOCUSATE SODIUM 50 MG/SENNA 8.6 MG TAB PO SCH ×2 (08:45→20:23)
[2017-04-09] MEDS: CITALOPRAM HYDROBROMIDE 20 MG TAB PO SCH (08:46)
[2017-04-09] MEDS: PANTOPRAZOLE SOD 40 MG DELAYED RELEASE TAB PO SCH (08:46)
[2017-04-09] MEDS: FOLIC ACID 1 MG TAB PO SCH (08:46)
[2017-04-09] MEDS: THIAMINE HCL 100 MG TAB PO SCH (08:46)
[2017-04-09] MEDS: NICOTINE 21 MG/24 HR PATCH T-DERMAL SCH (08:47)
[2017-04-09] MEDS ORDERED: GABAPENTIN 100 MG CAP PO SCH (09:00)
[2017-04-09] MEDS: REMOVE OLD PATCH T-DERMAL SCH (09:00)
--- NOTE | 2017-04-09 13:04 | HHI.PYPN ---
Subjective Remarks Patient seen and examined with counselor. Chart reviewed. Case discussed with nursing staff. On my examination today, the patient reports that his paranoia is lessening with titration of Seroquel. Mood remains a little bit low but no SI or HI. Sleeping well. Says that he is hopeful about getting into a sober living environment. He has made some calls to facilities in [place] and is planning on trying ones closer to this area today. Counselor to assist. No side effects from medications. No physical complaints. Review of Systems Except as stated in HPI: all other systems reviewed are Neg Objective Alert: Yes [place]: Person, Place, Date, Situation Mood: Depressed (slowly improving) Affect: Blunted Memory Intact: Comment (intact) Hallucinations: Other (No AVH) Delusions: Yes Delusion Type: Other (paranoia lessening) Suicidal: Ideation (No SI) Homicidal: Ideation (No HI) Insight/Judgment Poor Remarks Thought process linear. Grooming and hygiene fair. Speech within normal limits for rate, tone and volume. No motor abnormalities noted. Labs Labs reviewed. Abdominal x-ray impression reviewed. Vitals/IOs Vital Signs Date Time Temp Pulse Resp B/P (MAP) Pulse Ox O2 Delivery O2 Flow Rate FiO2 04/09/17 05:34 97.4 66 17 90/52 (65) 97 04/05/17 09:45 Room Air Intake and Output 04/09/17 04/09/17 04/10/17 08:00 16:00 00:00 Intake Total 240 ml 240 ml Balance 240 ml 240 ml Assessment & Plan Problem List: (1) Major depressive disorder ICD Codes: F32.9 - Major depressive disorder, single episode, unspecified Status: Acute (2) Chronic post-traumatic stress disorder (PTSD) ICD Codes: F43.12 - Post-traumatic stress disorder, chronic Status: Chronic (3) Polysubstance abuse ICD Codes: F19.10 - Other psychoactive substance abuse, uncomplicated Status: Chronic Assessment & Plan Continue current psychotropics as ordered. Could consider further titration of patient's Celexa to target mood. Continue to monitor on the inpatient unit. Hospitalist input noted and appreciated. Continue other medications and care as ordered. Justification for Cont. Inpt. Risk for decompensation and less restrictive environment. Discharge Planning Possible discharge after the weekend Request HC Surrog/Guard Advoc?: No Problem Qualifiers (1) Major depressive disorder: Qualified Codes: F33.2 - Major depressive disorder, recurrent severe without psychotic features Vitaliy Bell MD Apr 09, 2017 13:04
--- NOTE | 2017-04-09 17:32 | HHI.PR ---
Subjective Remarks Follow up for abdominal pain. Patient is resting in bed. Had BM. He reports mild abdominal pain. No fever, chills. Tolerating diet well. Objective Vitals Vital Signs Date Time Temp Pulse Resp B/P (MAP) Pulse Ox O2 Delivery O2 Flow Rate FiO2 04/09/17 05:34 97.4 66 17 90/52 (65) 97 04/08/17 18:21 98.1 68 17 161/92 (115) 98 I/O 04/08/17 04/08/17 04/08/17 04/09/17 04/09/17 04/09/17 07:00 15:00 23:00 07:00 15:00 23:00 Intake Total 480 ml 480 ml 240 ml Balance 480 ml 480 ml 240 ml Intake Oral 240 ml 480 ml 240 ml Tube Feeding 240 ml Result Diagram: 04/06/17 0708 Imaging Last Impressions Abdomen X-Ray 04/08/17 0000 Signed Impressions: Service Date/Time: Saturday, April 08, 2017 22:14 - CONCLUSION: Normal examination. Tian Lopez MD Objective Remarks GENERAL: AOX3. NAD. SKIN: Warm and dry. HEAD: Normocephalic. EYES: No scleral icterus. No injection or drainage. NECK: Supple, trachea midline. No JVD or lymphadenopathy. CARDIOVASCULAR: Regular rate and rhythm without murmurs, gallops, or rubs. RESPIRATORY: Breath sounds equal bilaterally. No accessory muscle use. GASTROINTESTINAL: Abdomen soft, non-tender, BS+. MUSCULOSKELETAL: No cyanosis, or edema. BACK: Nontender without obvious deformity. No CVA tenderness. Procedures None. A/P Assessment and Plan Mr. Larson is a pleasant 36 year old male who is currently under the care of psychiatry service due to suicidal ideations using a gun. - Abdominal pain - GERD - Lipase, LFTs unremarkable. - Patient's abdominal pain is likely due to constipation - Advised patient to continue to use Laxatives PRN. - KUB unremarkable. - Continue PPI. - Nicotine dependence - Continue Nicotine patch. - Pre-diabetes HbA1C 5.6. - Once abdominal symptoms resolve, metformin 500mg BID could be considered to prevent/delay onset of diabetes. - Continue sliding scale insulin for now. Full code. Ambulation. Patient can be discharged from medical standpoint. Will sign off. Please call us with any questions. Thank you. Servando Mancia DO Apr 09, 2017 17:32
[2017-04-09 18:16] VITALS: BP 136/82; PULSE 76; RESP 18; TEMP 98.8; O2SAT 99
[2017-04-09] MEDS: PRAZOSIN HCL 1 MG CAP PO SCH (20:23)
[2017-04-10 05:10] VITALS: BP 102/65; PULSE 66; RESP 18; TEMP 98.1; O2SAT 97
[2017-04-10] MEDS: INSULIN ASPART SUPPLEMENTAL SCALE SQ SCH ×4 (06:17→21:03)
[2017-04-10] MEDS: REMOVE OLD PATCH T-DERMAL SCH (09:00)
[2017-04-10] MEDS: CITALOPRAM HYDROBROMIDE 20 MG TAB PO SCH (09:19)
[2017-04-10] MEDS: DOCUSATE SODIUM 50 MG/SENNA 8.6 MG TAB PO SCH ×2 (09:19→21:20)
[2017-04-10] MEDS: FOLIC ACID 1 MG TAB PO SCH (09:20)
[2017-04-10] MEDS: QUEtiapine FUMARATE 25 MG TAB PO SCH ×2 (09:20→21:20)
[2017-04-10] MEDS: THIAMINE HCL 100 MG TAB PO SCH (09:20)
[2017-04-10] MEDS: NICOTINE 21 MG/24 HR PATCH T-DERMAL SCH (09:20)
[2017-04-10] MEDS: PANTOPRAZOLE SOD 40 MG DELAYED RELEASE TAB PO SCH (09:20)
--- NOTE | 2017-04-10 10:02 | HHI.PYPN ---
Subjective Remarks Patient seen and examined with nurse. Chart reviewed. Case discussed with nursing staff. On my examination today, patient remains depressed and a little bit irritable. Sleep remains a little bit poor. He is more interactive and more sociable on the unit per nursing staff. Minimal paranoia. Has spoken with and mother. Lessening morbid guilt. He says that he is asking God for forgiveness. Trying to work on short and long-term goals for after discharge, particularly with regards to substance use issues.. Denies side effects from medications. No physical complaints. Review of Systems Except as stated in HPI: all other systems reviewed are Neg Objective Alert: Yes [place]: Person, Place, Date, Situation Mood: Depressed (continues to slowly improve) Affect: Blunted Memory Intact: Comment (intact) Hallucinations: Other (no hallucinations) Delusions: No Delusion Type: Other (minimal residual paranoia) Suicidal: Ideation (No SI) Homicidal: Ideation (No HI) Insight/Judgment Fair Remarks No motor abnormalities noted. Thought process linear. Labs Labs reviewed. Vitals/IOs Vital Signs Date Time Temp Pulse Resp B/P (MAP) Pulse Ox O2 Delivery O2 Flow Rate FiO2 04/10/17 05:10 98.1 66 18 102/65 (77 97 Assessment & Plan Problem List: (1) Major depressive disorder ICD Codes: F32.9 - Major depressive disorder, single episode, unspecified Status: Acute (2) Chronic post-traumatic stress disorder (PTSD) ICD Codes: F43.12 - Post-traumatic stress disorder, chronic Status: Chronic (3) Polysubstance abuse ICD Codes: F19.10 - Other psychoactive substance abuse, uncomplicated Status: Chronic Assessment & Plan Titrate Celexa after the weekend to 40 mg daily for mood. Continue other psychotropics as ordered. Continue to monitor on the inpatient unit. Continue other medications and care as ordered. Justification for Cont. Inpt. Risk for decompensation and less restrictive environment. Discharge Planning possible discharge after the weekend. Request HC Surrog/Guard Advoc?: No Problem Qualifiers (1) Major depressive disorder: Qualified Codes: F33.2 - Major depressive disorder, recurrent severe without psychotic features Vitaliy Bell MD Apr 10, 2017 10:02
[2017-04-10] MEDS ORDERED: PILL SPLITTER OTHER PRN (12:30)
[2017-04-10 18:12] VITALS: BP 158/77; PULSE 68; RESP 17; TEMP 98.3; O2SAT 99
[2017-04-10] MEDS: PRAZOSIN HCL 1 MG CAP PO SCH (21:20)
[2017-04-10] MEDS: hydrOXYzine HCL 50 MG TAB PO PRN (21:20)
[2017-04-11 05:00] VITALS: BP 117/70; PULSE 62; RESP 16; TEMP 97.8; O2SAT 98
[2017-04-11] MEDS: INSULIN ASPART SUPPLEMENTAL SCALE SQ SCH ×4 (06:15→20:40)
[2017-04-11] MEDS: REMOVE OLD PATCH T-DERMAL SCH (09:00)
[2017-04-11] MEDS: QUEtiapine FUMARATE 25 MG TAB PO SCH ×2 (09:21→20:43)
[2017-04-11] MEDS: THIAMINE HCL 100 MG TAB PO SCH (09:21)
[2017-04-11] MEDS: DOCUSATE SODIUM 50 MG/SENNA 8.6 MG TAB PO SCH ×2 (09:23→20:43)
[2017-04-11] MEDS: PANTOPRAZOLE SOD 40 MG DELAYED RELEASE TAB PO SCH (09:23)
[2017-04-11] MEDS: CITALOPRAM HYDROBROMIDE 20 MG TAB PO SCH (09:23)
[2017-04-11] MEDS: FOLIC ACID 1 MG TAB PO SCH (09:23)
[2017-04-11] MEDS: NICOTINE 21 MG/24 HR PATCH T-DERMAL SCH (09:26)
--- NOTE | 2017-04-11 15:02 | HHI.PYPN ---
Subjective Remarks Patient was seen and case discussed with nursing. Patient is blunted and guarded, vague during the interview. He describes suicidal ideation secondary to nonspecific stressors. Was using sporadically cocaine and all call. Says the gun was not his and is now locked up and he has no access to it. Mood remains depressed. He denies suicidal or homicidal ideation intent or plan. Denies auditory or visual hallucinations. However visit from his and is getting along well with her. Objective Alert: Yes [place]: Person, Place, Date, Situation Mood: Depressed (continues to slowly improve) Affect: Blunted Memory Intact: Comment (intact) Hallucinations: Other (no hallucinations) Delusions: No Delusion Type: Other (minimal residual paranoia) Suicidal: Ideation (No SI) Homicidal: Ideation (No HI) Insight/Judgment Poor Vitals/IOs Vital Signs Date Time Temp Pulse Resp B/P (MAP) Pulse Ox O2 Delivery O2 Flow Rate FiO2 04/11/17 05:00 97.8 62 16 117/70 (86) 98 Assessment & Plan Problem List: (1) Major depressive disorder ICD Codes: F32.9 - Major depressive disorder, single episode, unspecified Status: Acute (2) Chronic post-traumatic stress disorder (PTSD) ICD Codes: F43.12 - Post-traumatic stress disorder, chronic Status: Chronic (3) Polysubstance abuse ICD Codes: F19.10 - Other psychoactive substance abuse, uncomplicated Status: Chronic Assessment & Plan Continue current treatment plan Justification for Cont. Inpt. Patient will decompensate in a less restrictive setting Request HC Surrog/Guard Advoc?: No Problem Qualifiers (1) Major depressive disorder: Qualified Codes: F33.2 - Major depressive disorder, recurrent severe without psychotic features Ozzie Wade DO Apr 11, 2017 15:02
[2017-04-11 20:12] VITALS: BP 131/77; PULSE 69; RESP 17; TEMP 98.2; O2SAT 96
[2017-04-11] MEDS: PRAZOSIN HCL 1 MG CAP PO SCH (20:43)
[2017-04-12 05:16] VITALS: BP 125/78; PULSE 71; RESP 17; TEMP 97.3; O2SAT 97
[2017-04-12] MEDS: INSULIN ASPART SUPPLEMENTAL SCALE SQ SCH ×4 (06:00→21:00)
[2017-04-12] MEDS: REMOVE OLD PATCH T-DERMAL SCH (09:00)
[2017-04-12] MEDS: DOCUSATE SODIUM 50 MG/SENNA 8.6 MG TAB PO SCH ×2 (09:41→21:05)
[2017-04-12] MEDS: CITALOPRAM HYDROBROMIDE 20 MG TAB PO SCH (09:43)
[2017-04-12] MEDS: THIAMINE HCL 100 MG TAB PO SCH (09:43)
[2017-04-12] MEDS: PANTOPRAZOLE SOD 40 MG DELAYED RELEASE TAB PO SCH (09:43)
[2017-04-12] MEDS: FOLIC ACID 1 MG TAB PO SCH (09:43)
[2017-04-12] MEDS: QUEtiapine FUMARATE 25 MG TAB PO SCH ×2 (09:43→21:05)
[2017-04-12] MEDS: NICOTINE 21 MG/24 HR PATCH T-DERMAL SCH (09:48)
--- NOTE | 2017-04-12 12:38 | HHI.PYPN ---
Subjective Remarks Patient was seen and case discussed with nursing. Patient continues to improve. He is more social today and out of the dayroom. Had a productive visit with his plans on going to live with her after discharge. "Feeling better." Depression is 1 out of 10. Eating and sleeping well. Denies suicidal or homicidal ideation intent or plan Objective Alert: Yes [place]: Person, Place, Date, Situation Mood: Depressed (continues to slowly improve) Affect: Blunted Memory Intact: Comment (intact) Hallucinations: Other (no hallucinations) Delusions: No Delusion Type: Other (minimal residual paranoia) Suicidal: Ideation (No SI) Homicidal: Ideation (No HI) Insight/Judgment Fair Vitals/IOs Vital Signs Date Time Temp Pulse Resp B/P (MAP) Pulse Ox O2 Delivery O2 Flow Rate FiO2 04/12/17 05:16 97.3 71 17 125/78 (94) 97 Assessment & Plan Problem List: (1) Major depressive disorder ICD Codes: F32.9 - Major depressive disorder, single episode, unspecified Status: Acute (2) Chronic post-traumatic stress disorder (PTSD) ICD Codes: F43.12 - Post-traumatic stress disorder, chronic Status: Chronic (3) Polysubstance abuse ICD Codes: F19.10 - Other psychoactive substance abuse, uncomplicated Status: Chronic Assessment & Plan Continue current treatment plan Justification for Cont. Inpt. Patient would decompensate in a less restrictive setting Request HC Surrog/Guard Advoc?: No Problem Qualifiers (1) Major depressive disorder: Qualified Codes: F33.2 - Major depressive disorder, recurrent severe without psychotic features Ozzie Wade DO Apr 12, 2017 12:38
[2017-04-12] MEDS: PRAZOSIN HCL 1 MG CAP PO SCH (21:05)
[2017-04-13 05:15] VITALS: BP 104/66; PULSE 61; RESP 18; TEMP 97.9; O2SAT 98
[2017-04-13] MEDS: INSULIN ASPART SUPPLEMENTAL SCALE SQ SCH ×2 (06:40→11:12)
[2017-04-13] MEDS: THIAMINE HCL 100 MG TAB PO SCH (08:39)
[2017-04-13] MEDS: DOCUSATE SODIUM 50 MG/SENNA 8.6 MG TAB PO SCH (08:39)
[2017-04-13] MEDS: PANTOPRAZOLE SOD 40 MG DELAYED RELEASE TAB PO SCH (08:39)
[2017-04-13] MEDS: FOLIC ACID 1 MG TAB PO SCH (08:39)
[2017-04-13] MEDS: REMOVE OLD PATCH T-DERMAL SCH (08:40)
[2017-04-13] MEDS: NICOTINE 21 MG/24 HR PATCH T-DERMAL SCH (08:40)
[2017-04-13] MEDS: CITALOPRAM HYDROBROMIDE 20 MG TAB PO SCH (08:40)
[2017-04-13] MEDS: QUEtiapine FUMARATE 25 MG TAB PO SCH (08:40)
[2017-04-13] MEDS ORDERED: PANT40TA3 PO (11:02)
[2017-04-13] MEDS ORDERED: QUET1TAB7 PO (11:02)
[2017-04-13] MEDS ORDERED: SENN1TAB PO (11:02)
[2017-04-13] MEDS ORDERED: CELE20TA PO (11:02)
[2017-04-13] MEDS ORDERED: PRAZ1 PO (11:02)
--- NOTE | 2017-04-13 11:02 | HHI.DS ---
Psychiatry Discharge Summary Inpatient Psychiatric care?: Yes Advance Directive: No Reason Not Provided: Due to Patient Condition Mental Health AdvanceDirective: No Health Care Proxy: No Admission Admission Date Apr 05, 2017 at 09:35 Admission Diagnosis: (1) Major depressive disorder ICD Code: F32.9 - Major depressive disorder, single episode, unspecified (2) Chronic post-traumatic stress disorder (PTSD) ICD Code: F43.12 - Post-traumatic stress disorder, chronic (3) Polysubstance abuse ICD Code: F19.10 - Other psychoactive substance abuse, uncomplicated Brief History Mr. Larson is a 36-year-old male with a reported history of posttraumatic stress disorder, depression and bipolar disorder who presented voluntarily to the emergency department after what sounds like an aborted suicide attempt with a gun. He was placed under a Smith act by the ED provider. He was evaluated by psychiatric nurse practitioner. Reviewing the electronic medical record, I see no prior psychiatric contact within our system. Patient seen and examined with nurse. Chart reviewed. Case discussed with nursing staff. On my examination today, the patient reports that he has been dealing with a lot of hypervigilance and reexperiencing related [place] "doing a lot of things I'm not proud of." He says that his sleep has been disrupted for several months by nightmares. He often uses alcohol in an attempt to get to sleep. He describes some generalized anxiety and several psychosocial stressors. He describes visual phenomena that sound more like misperceptions, chiefly at night, for example seeing a skull in a shadow in his bedroom. These perceptions and context seem more related to hypervigilance from his PTSD. No auditory hallucinations or other hallucinatory material. Mood is depressed. Appetite increased. Somewhat fatigued. Denies any homicidal ideation but remains somewhat ambivalent regarding suicidal ideation. He denies any urge to hurt himself on the unit. No delusional material. No hypomanic or manic symptoms. He says that he has been off of his psychotropic medications for 8 or 9 months. Remainder of the psychiatric ROS is negative. Patient complains of lower right and left abdominal pain, steady and not associated with eating. He denies any bowel issues. Denies any constipation/diarrhea/blood in stool. Past psychiatric history: The patient reports a history of psychiatric treatment in [place]. He has several previous psychiatric admissions and endorses suicide attempts in the past by hanging. He also endorses a history of nonsuicidal self-injurious behavior by cutting. He cannot definitively recall previous medication trials besides Wellbutrin/Risperdal as this was the most recent but not necessarily the most efficacious. He has tried some SSRIs in the past he thinks. Tobacco Use In Past 30 Days: 5 or More Cigarettes/Day Alcohol Use: 4 or More Times Per Week Hospital Course Patient was admitted to a locked, inpatient psychiatric unit. A general medical consultation was obtained. Appropriate precautions were in place throughout patient's hospital stay. Patient was seen and examined daily on the unit by psychiatry and also visited by counselor. Psychotropic medications were adjusted. Patient tolerated medications well without side effects. Patient had improvement in presenting psychiatric symptomatology. There was no evidence of any suicidality or homicidality on the inpatient unit. The patient remained in good behavioral control and was compliant with medications. On the day of discharge: Patient seen and examined with nurse. Chart reviewed. Case discussed with nursing staff. No behavioral issues overnight. Case discussed with counselor who has reached out to the patient's today. reportedly has no safety concerns about patient being discharged today. Firearm has been secured. On my examination today, the patient is requesting discharge from the inpatient psychiatric unit. He feels that we have met his treatment goals on the inpatient unit. Mood is improved versus admission. He feels more sociable and interactive. No depressive or hypomanic/manic symptoms at this time. Denies suicidal or homicidal ideation, intent or plan on direct questioning and contracts for safety. Future oriented. Suspiciousness/ paranoia considerably attenuated, essentially gone. Unclear that this was ever psychotic in nature, and this symptom cluster may be better explained by his post traumatic stress disorder. No other delusional material. Denies audiovisual hallucinations besides occasionally seeing "shadows." Denies command auditory hallucinations. Denies side effects from medications. No physical complaints. Weighing the acute, chronic, and protective factors and based on the available evidence, I sexual abuse counsellor to a reasonable degree of medical certainty that the patient is at low imminent risk of harm to self or others from a mental illness as defined under the Smith act and his level of function is adequate for outpatient care. The patient has maximized benefit from this inpatient psychiatric hospital stay and will be discharged today with psychiatric follow-up as arranged by counselor. Patient is also to follow-up with primary care to follow up on mild hyperglycemia, possible pre-diabetes. Diabetic diet on discharge. I have counseled the patient to abstain from substances of abuse. I counseled patient regarding warning signs for need to return to the psychiatric emergency room as part of the general safety plan. Results Blood Pressure 104 / 66 Vital Signs Date Time Temp Pulse Resp B/P (MAP) Pulse Ox O2 Delivery O2 Flow Rate FiO2 04/13/17 05:15 97.9 61 18 104/66 (79) 98 Laboratory Results Test 04/06/17 07:08 Cholesterol Level 181 MG/DL (120-200) HDL Cholesterol 40.3 MG/DL (40.0-60.0) Hemoglobin A1c 5.6 % (4.3-6.0) LDL Cholesterol 107 MG/DL (0-99) Triglycerides Level 167 MG/DL (42-150) Summary of Procedures None done Imaging Last Impressions Abdomen X-Ray 04/08/17 0000 Signed Impressions: Service Date/Time: Saturday, April 08, 2017 22:14 - CONCLUSION: Normal examination. Tian Lopez MD Pending results at discharge: No Medications # of Antipsychotic meds at D/C: 1 Approp Antipsych med options 1 - Minimum of three failed multiple trials of monotherapy. 2 - Documented plan to taper to monotherapy due to previous use of multiple meds OR cross-taper in progress at D/C. 3 - Documentation of augmentation of Clozapine. 4 - Justification other than those listed in allowable values 1-3, document here : Discharge Discharge Date: Apr 13, 2017 Discharge Diagnosis: (1) Major depressive disorder, recurrent, in remission, unspecified Diagnosis: Principal ICD Code: F33.40 - Major depressive disorder, recurrent, in remission, unspecified (2) Chronic post-traumatic stress disorder (PTSD) Diagnosis: Secondary (improved versus admission) ICD Code: F43.12 - Post-traumatic stress disorder, chronic Status: Chronic (3) Polysubstance abuse Diagnosis: Secondary (counseled to quit) ICD Code: F19.10 - Other psychoactive substance abuse, uncomplicated Status: Chronic Mental Status Exam at Disch Patient is casually dressed. Patient is well groomed. Patient is awake and alert and oriented person and hospital at least. No evidence of delirium. No motor abnormalities appreciated. Speech is within normal limits for rate, tone , volume. Language and fund of knowledge seem average. Focus and concentration intact. Memory grossly intact on clinical exam. Mood is improved versus admission. Affect is full and reactive. Thought process linear. No delusions elicited besides perhaps some mild residual guardedness. Denies audiovisual hallucinations and does not appear internally stimulated. Denies suicidal or homicidal ideation, intent, or plan and contracts for safety. Insight and judgment seem fair. Pt Condition on Discharge: Stable Discharge Disposition: Discharge Home Discharge Instructions Diet Instructions: Diabetic Diet Activities you can perform: Weight Bearing as Wander Scheduled Appointment: as per counselor's notes New Medications: Citalopram (Celexa) 20 Mg Tab 40 MG PO DAILY for Mental Health for 15 Days, TAB 1 Refill Pantoprazole (Pantoprazole) 40 Mg Tab 40 MG PO DAILY for Health for 15 Days, TAB 1 Refill Prazosin (Minipress) 1 Mg Cap 1 MG PO HS for Mental Health for 15 Days, CAP 1 Refill Quetiapine (Quetiapine) 25 Mg Tab 50 MG PO BID for Mental Health for 15 Days, TAB 1 Refill Sennosides-Docusate Sodium (Senna Plus 8.6-50 mg) 8.6 Mg-50 Mg Tab 1 TAB PO BID for Constipation for 15 Days, TAB 1 Refill Discharge Time <= 30 minutes Discharge/Advance Care Plan Health Problems: (1) Major depressive disorder (2) Chronic post-traumatic stress disorder (PTSD) (3) Polysubstance abuse Goals to promote your health * To prevent worsening of your condition and complications * To maintain your health at the optimal level Directions to meet your goals Take your medications as prescribed Follow your dietary instruction Follow activity as directed Keep your appointments as scheduled Take your immunizations and boosters as scheduled If your symptoms worsen call your PCP, if no PCP go to Urgent Care Center or Emergency Room For 02/03 questions related to your inpatient stay or results of tests pending at discharge, please contact Dr. Vitaliy Bell at Smoking is Dangerous to Your Health. Avoid second hand smoking Problem Qualifiers (1) Major depressive disorder: Qualified Codes: F33.2 - Major depressive disorder, recurrent severe without psychotic features Vitaliy Bell MD Apr 13, 2017 11:02
== END 2017-04-13 13:05 | disposition home or self-care (01) | DRG 882 ==
LOC: NEPE 08:02 → NEDA 04-05 09:35 → H260 04-05 10:10
PROVIDERS: ADMIT Psychiatry & Neurology Psychiatry; ATTEND Psychiatry & Neurology Psychiatry
DX: F43.12 Post-traumatic stress disorder, chronic (principal); F33.40 Major depressive disorder, recurrent, in remission, unspecified; I10 Essential (primary) hypertension; F19.10 Other psychoactive substance abuse, uncomplicated; K21.9 Gastro-esophageal reflux disease without esophagitis; F17.210 Nicotine dependence, cigarettes, uncomplicated; K59.00 Constipation, unspecified; R73.03 Prediabetes; Z83.3 Family history of diabetes mellitus
CPT/HCPCS: 74000; 80048; 80061; 80076; 80307; 82948; 83036; 83690; 84443; 85025; 93005; J1815; Q0163

== ENCOUNTER 2017-06-14 01:44 | Emergency (ER) | payer OTHER ==
[~2017-06-14 01:44] MED LIST changes: +CELE20TA PO; -LISI2.5T3 PO; +PANT40TA3 PO; +PRAZ1 PO; +QUET1TAB7 PO; +SENN1TAB PO
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
[2017-06-14] MEDS ORDERED: DICL75TA PO (02:58)
[2017-06-14] MEDS ORDERED: AMOX500T PO (02:58)
[2017-06-14] MEDS ORDERED: TETANUS/DIPHTHERIA TOXOID ADULT 0.5 ML VIAL IM ONE (03:00)
[2017-06-14] MEDS ORDERED: AMOXICILLIN (TRIHYDRATE) 500 MG CAP PO ONE (03:00)
== END 2017-06-14 03:59 | disposition home or self-care (01) ==
LOC: NEPD 01:44
DX: S01.511A Laceration without foreign body of lip, initial encounter (principal); R51 Headache; F41.9 Anxiety disorder, unspecified; F32.9 Major depressive disorder, single episode, unspecified; E11.9 Type 2 diabetes mellitus without complications; K21.9 Gastro-esophageal reflux disease without esophagitis; I10 Essential (primary) hypertension; Z23 Encounter for immunization; Y04.8XXA Assault by other bodily force, initial encounter
CPT/HCPCS: 12051; 90471; 90714

== ENCOUNTER 2017-08-17 19:04 | Emergency (ER) | payer SELFPAY ==
[2017-08-17 19:04] VITALS: BP 136/79; PULSE 95; RESP 16; TEMP 97.9; O2SAT 97
[~2017-08-17 19:04] MED LIST changes: +AMOX500T PO; -CELE20TA PO; +DICL75TA PO; -PANT40TA3 PO; -PRAZ1 PO; -QUET1TAB7 PO; -SENN1TAB PO
[2017-08-17 20:29] LABS: BASOPHIL % 0.3 % (0.0-2.0); EOSINOPHIL # 0.2 TH/MM3 (0-0.4); EOSINOPHIL % 2.1 % (0.0-4.0); HEMATOCRIT 41.2 % (39.0-51.0); HEMOGLOBIN 13.4 GM/DL (13.0-17.0); LYMPH % 16.9 % (9.0-44.0); LYMPHOCYTE # 1.9 TH/MM3 (1.0-4.8); MEAN CELL VOLUME 88.8 FL (80.0-100.0); MEAN CORPUSCULAR HEMOGLOBIN 28.8 PG (27.0-34.0); MEAN CORPUSCULAR HGB CONC 32.5 % (32.0-36.0); MEAN PLATELET VOLUME 9.9 FL (7.0-11.0); MONO % 10.5 % (0.0-8.0); MONOCYTE # 1.2 TH/MM3 (0-0.9); NEUT % 70.2 % (16.0-70.0); PLATELET COUNT 342 TH/MM3 (150-450); RED BLOOD COUNT 4.64 MIL/MM3 (4.50-5.90); WHITE BLOOD COUNT 11.4 TH/MM3 (4.0-11.0)
[2017-08-17 20:52] LABS: ALBUMIN 4.2 GM/DL (3.4-5.0); AST (GOT) 31 U/L (15-37); BICARBONATE 28.9 MEQ/L (21.0-32.0); BLOOD UREA NITROGEN 11 MG/DL (7-18); CALCIUM 8.9 MG/DL (8.5-10.1); CHLORIDE 103 MEQ/L (98-107); CREATININE 1.28 MG/DL (0.60-1.30); GLOMERULAR FILTRATION RATE 76 ML/MIN (>89); GLUCOSE,RANDOM 109 MG/DL (74-106); SODIUM (NA) 139 MEQ/L (136-145)
[2017-08-17 20:56] LABS: ALKALINE PHOSPHATASE 85 U/L (45-117); ALT (GPT) 33 U/L (12-78); TOTAL BILIRUBIN ADULT 1.1 MG/DL (0.2-1.0); TOTAL PROTEIN 8.4 GM/DL (6.4-8.2)
--- NOTE | 2017-08-18 00:16 | PD ---
HPI Chief Complaint: Psychiatric Symptoms Time Seen by Provider: 00:01 Travel History International Travel<30 days: No Contact w/Intl Traveler<30days: No Traveled to known affect area: No History of Present Illness HPI 36-year-old male with history of depression here voluntarily for psychiatric evaluation for worsening depression. The patient reports that his godmother who raised him was diagnosed with cirrhosis. He also reports a strained relationship with his significant other. Although he does not have a suicidal plan, he reports that he does not have the will to keep going. He denies any toxic ingestions or self-harm, though he does have history of suicide attempts. He states that he tried to hang himself as well as cut his right wrist several years ago. Currently he denies any physical complaints. States that he has not been taking his medication for depression, and believes that he may need to be restarted on it. He cannot recall the name of this medication. PFSH Past Medical History Hx Anticoagulant Therapy: No Anxiety: Yes Depression: Yes Cancer: No Cardiovascular Problems: Yes Chemotherapy: No Cerebrovascular Accident: No Diabetes: Yes (TYPE 2, NON-COMPLIANT WITH MEDICATION) Endocrine: Yes Gastrointestinal Disorders: Yes GERD: Yes Genitourinary: No Hypertension: Yes Immune Disorder: No Musculoskeletal: No Neurologic: No Psychiatric: Yes (Depression) Reproductive: No Respiratory: No Past Surgical History Other Surgery: No Social History Alcohol Use: Yes (twice weekly beer all day) Tobacco Use: Yes (1/2 ppd) Substance Use: Yes (COCAINE) Allergies-Medications (Allergen,Severity, Reaction): Coded Allergies: No Known Allergies (Unverified , 04/04/17) Reported Meds & Prescriptions Reported Meds & Active Scripts Active Diclofenac Sodium DR (Diclofenac Sodium) 75 Mg Tabdr 75 Mg PO BID Amoxicillin 500 Mg Tab 500 Mg PO TID Review of Systems Except as stated in HPI: all other systems reviewed are Neg Physical Exam Narrative GENERAL: Well-developed, well-nourished, comfortable, no apparent distress. SKIN: Focused skin assessment warm/dry. HEAD: Atraumatic. Normocephalic. EYES: Pupils equal and round. No scleral icterus. No injection or drainage. ENT: Mucous membranes pink and moist. NECK: Trachea midline. No JVD. CARDIOVASCULAR: Regular rate and rhythm. No murmur appreciated. RESPIRATORY: No accessory muscle use. Clear to auscultation. Breath sounds equal bilaterally. GASTROINTESTINAL: Abdomen soft, non-tender, nondistended. MUSCULOSKELETAL: No obvious deformities. No clubbing. No cyanosis. No edema. NEUROLOGICAL: Awake and alert. No obvious cranial nerve deficits. Motor grossly within normal limits. Normal speech. PSYCHIATRIC: Flat affect. Depressed mood. Data Data Last Documented VS Vital Signs Date Time Temp Pulse Resp B/P (MAP) Pulse Ox O2 Delivery O2 Flow Rate FiO2 08/17/17 19:04 97.9 95 16 136/79 (98) 97 Room Air Orders Orders Complete Blood Count With Diff (08/17/17 19:38) Comprehensive Metabolic Panel (08/17/17 19:38) Psych Screen (08/17/17 19:38) Drug Screen, Random Urine (08/17/17 19:38) Labs Laboratory Tests Test 08/17/17 19:53 White Blood Count 11.4 TH/MM3 Red Blood Count 4.64 MIL/MM3 Hemoglobin 13.4 GM/DL Hematocrit 41.2 % Mean Corpuscular Volume 88.8 FL Mean Corpuscular Hemoglobin 28.8 PG Mean Corpuscular Hemoglobin Concent 32.5 % Red Cell Distribution Width 15.0 % Platelet Count 342 TH/MM3 Mean Platelet Volume 9.9 FL Neutrophils (%) (Auto) 70.2 % Lymphocytes (%) (Auto) 16.9 % Monocytes (%) (Auto) 10.5 % Eosinophils (%) (Auto) 2.1 % Basophils (%) (Auto) 0.3 % Neutrophils # (Auto) 8.0 TH/MM3 Lymphocytes # (Auto) 1.9 TH/MM3 Monocytes # (Auto) 1.2 TH/MM3 Eosinophils # (Auto) 0.2 TH/MM3 Basophils # (Auto) 0.0 TH/MM3 CBC Comment DIFF FINAL Differential Comment Blood Urea Nitrogen 11 MG/DL Creatinine 1.28 MG/DL Random Glucose 109 MG/DL Total Protein 8.4 GM/DL Albumin 4.2 GM/DL Calcium Level 8.9 MG/DL Alkaline Phosphatase 85 U/L Aspartate Amino Transf (AST/SGOT) 31 U/L Alanine Aminotransferase (ALT/SGPT) 33 U/L Total Bilirubin 1.1 MG/DL Sodium Level 139 MEQ/L Potassium Level 3.6 MEQ/L Chloride Level 103 MEQ/L Carbon Dioxide Level 28.9 MEQ/L Anion Gap 7 MEQ/L Estimat Glomerular Filtration Rate 76 ML/MIN Urine Opiates Screen NEG Urine Barbiturates Screen NEG Urine Amphetamines Screen NEG Urine Benzodiazepines Screen NEG Urine Cocaine Screen POS Urine Cannabinoids Screen NEG MDM Medical Decision Making Medical Screen Exam Complete: Yes Emergency Medical Condition: Yes Medical Record Reviewed: Yes Differential Diagnosis Depression, suicidal ideation Narrative Course Vital signs reviewed. CBC and CMP are essentially unremarkable. Urine drug screen is positive for cocaine. The patient is medically cleared for psychiatric evaluation and disposition by them. Diagnosis Primary Impression: Major depressive disorder Qualified Codes: F33.9 - Major depressive disorder, recurrent, unspecified Bill Wolf MD Aug 18, 2017 00:16
[2017-08-18 03:27] VITALS: BP 146/99; PULSE 68; RESP 18; TEMP 98.2; O2SAT 97
[2017-08-18 07:09] VITALS: BP 143/70; PULSE 60; RESP 18; TEMP 98.4; O2SAT 98
[2017-08-18 10:00] VITALS: BP 134/65; PULSE 75; RESP 18; O2SAT 98
--- NOTE | 2017-08-18 15:13 | PD ---
History of Present Illness Chief Complaint: Psychiatric Symptoms Time Seen by Provider: 14:45 Travel History International Travel<30 Days: No Contact w/Intl Traveler<30days: No Known affected area: No Legal Status Legal Status: Voluntary History of Present Illness: History of Present Illness HPI 36-year-old male with history of depression here voluntarily for psychiatric evaluation for worsening depression. The patient reports that his godmother who raised him was diagnosed with cirrhosis. He also reports a strained relationship with his significant other. Although he does not have a suicidal plan, he reports that he does not have the will to keep going.. States that he has not been taking his medication for depression, and believes that he may need to be restarted on it. He cannot recall the name of this medication. Seen. clinical marketing manager Alcides present during visit.EMR reviewed. Alert, oriented male who is dressed in hospital gown. He is engaging and cooperative. His speech is clear and logical. He is not psychotic, not manic or hypomanic. Mood is depressed. PFSH Past Medical History Hx Anticoagulant Therapy: No Anxiety: Yes Depression: Yes Cancer: No Cardiovascular Problems: Yes Chemotherapy: No Cerebrovascular Accident: No Diabetes: Yes (TYPE 2, NON-COMPLIANT WITH MEDICATION) Endocrine: Yes Gastrointestinal Disorders: Yes GERD: Yes Genitourinary: No Hypertension: Yes Immune Disorder: No Musculoskeletal: No Neurologic: No Psychiatric: Yes (Depression) Reproductive: No Respiratory: No Past Surgical History Other Surgery: No Psychiatric History Psychiatric History Hx Psychiatric Treatment: Patient with a hx of major depressive disorder. His last admission was Apr 05- Apr 13, 2017. Reports previous suicide attempts by hanging 5 years ago. Also reports history of cutting himself History of Inpatient Treatment: Yes Guns or firearms in home: No Social History male. Has 4 children. 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 Hx Alcohol Use: Yes (twice weekly beer all day) Hx Tobacco Use: Yes (1/2 ppd) Hx Substance Use: Yes (COCAINE) Substance Use Type: Alcohol, Nicotine/Cigarettes, Cocaine Other Substances Used: 1/2 ppd Hx of Substance Use Treatment: No Family Psychiatric History Negative Allergies-Medications (Allergen,Severity, Reaction): Coded Allergies: No Known Allergies (Unverified , 04/04/17) Reported Meds & Prescriptions Reported Meds & Active Scripts Active No Active Prescriptions or Reported Medications Review of Systems Psychiatric: COMPLAINS OF: Depression Except as stated in HPI: all other systems reviewed are Neg Mental Status Examination Appearance: Appropriate Consciousness: Alert Orientation: x4 Motor Activity: Normal gait Speech: Unremarkable Language: Adequate Fund of Knowledge: Adequate Attention and Concentration: Adequate Memory: Unremarkable Mood: Appropriate, Sad Affect: Appropriate Thought Process & Associations: Intact Thought Content: Appropriate Hallucination Type: None Delusion Type: None Suicidal Ideation: No Suicidal Plan: No Suicidal Intention: No Homicidal Ideation: No Homicidal Plan: No Homicidal Intention: No Insight: Fair MDM Medical Decision Making Medical Record Reviewed: Yes Assessment/Plan 36-year-old male with reported history of depression who presents to the emergency department on a voluntary basis reporting increase in symptoms of depression with passive suicidal ideation. The patient does not present any psychosis or any charlene. He is cognitively intact. He is future oriented and states that he wants to get better. He has continued his use of alcohol as well as cocaine although he minimizes and states that he only uses intermittently. He is provided information regarding substance abuse treatment. He is also a advised on abstinence. He is being referred for further treatment at [facility]. I will also provide him a prescription first hightop lizet which he states has worked well for him in the past. He agrees to go to [facility] for follow-up. At this point the patient is psychiatrically clear for discharge from the ED. Orders Orders Complete Blood Count With Diff (08/17/17 19:38) Comprehensive Metabolic Panel (08/17/17 19:38) Psych Screen (08/17/17 19:38) Drug Screen, Random Urine (08/17/17 19:38) Diet Regular Basic (08/18/17 Breakfast) Diet Regular Basic (08/18/17 Lunch) Results Vital Signs Date Time Temp Pulse Resp B/P (MAP) Pulse Ox O2 Delivery O2 Flow Rate FiO2 08/18/17 10:00 75 18 134/65 (88) 98 08/18/17 07:09 98.4 60 18 143/70 (94) 98 Room Air 08/18/17 03:27 98.2 68 18 146/99 (115) 97 Room Air 08/17/17 19:04 97.9 95 16 136/79 (98) 97 Room Air Laboratory Tests Test 08/17/17 19:53 White Blood Count 11.4 Red Blood Count 4.64 Hemoglobin 13.4 Hematocrit 41.2 Mean Corpuscular Volume 88.8 Mean Corpuscular Hemoglobin 28.8 Mean Corpuscular Hemoglobin Concent 32.5 Red Cell Distribution Width 15.0 Platelet Count 342 Mean Platelet Volume 9.9 Neutrophils (%) (Auto) 70.2 Lymphocytes (%) (Auto) 16.9 Monocytes (%) (Auto) 10.5 Eosinophils (%) (Auto) 2.1 Basophils (%) (Auto) 0.3 Neutrophils # (Auto) 8.0 Lymphocytes # (Auto) 1.9 Monocytes # (Auto) 1.2 Eosinophils # (Auto) 0.2 Basophils # (Auto) 0.0 CBC Comment DIFF FINAL Differential Comment Blood Urea Nitrogen 11 Creatinine 1.28 Random Glucose 109 Total Protein 8.4 Albumin 4.2 Calcium Level 8.9 Alkaline Phosphatase 85 Aspartate Amino Transf (AST/SGOT) 31 Alanine Aminotransferase (ALT/SGPT) 33 Total Bilirubin 1.1 Sodium Level 139 Potassium Level 3.6 Chloride Level 103 Carbon Dioxide Level 28.9 Anion Gap 7 Estimat Glomerular Filtration Rate 76 Urine Opiates Screen NEG Urine Barbiturates Screen NEG Urine Amphetamines Screen NEG Urine Benzodiazepines Screen NEG Urine Cocaine Screen POS Urine Cannabinoids Screen NEG Diagnosis Primary Impression: Major depressive disorder Additional Impression: Substance induced mood disorder Psychiatrically Cleared: Yes Med/ Other Pt Specific Info: Prescription(s) given Prescriptions Prazosin (Prazosin) 1 Mg Cap 1 MG PO HS for Blood Pressure Management, #30 CAP 0 Refills Prov: Fajardo,Simin Gordona Jensen TABLET TECHNICIAN 08/18/17 Citalopram (Citalopram) 20 Mg Tab 20 MG PO DAILY for Control Depression for 30 Days, #30 TAB 0 Refills Prov: FajardoAlicias Phoebe Jensen TABLET TECHNICIAN 08/18/17 Disposition: 01 DISCHARGE HOME Condition: Stable Problem Qualifiers Primary Impression: Major depressive disorder Qualified Codes: F33.9 - Major depressive disorder, recurrent, unspecified Fajardo,Simin Phoebe Jensen ARVIN Aug 18, 2017 15:13
[2017-08-18] MEDS ORDERED: IBUPROFEN 400 MG TAB PO ONE (15:15)
--- NOTE | 2017-08-18 15:16 | PD ---
Physical Exam Date Seen by Provider: Aug 18, 2017 Narrative This patient presented as a voluntary psychiatric patient for depression and suicidal ideation. He has been seen here by psychiatry. They have arranged for the patient to [facility]. The patient will be discharged from here to go [facility]. Data Data Last Documented VS Vital Signs Date Time Temp Pulse Resp B/P (MAP) Pulse Ox O2 Delivery O2 Flow Rate FiO2 08/18/17 10:00 75 18 134/65 (88) 98 08/18/17 07:09 98.4 Room Air Orders Orders Complete Blood Count With Diff (08/17/17 19:38) Comprehensive Metabolic Panel (08/17/17 19:38) Psych Screen (08/17/17 19:38) Drug Screen, Random Urine (08/17/17 19:38) Diet Regular Basic (08/18/17 Breakfast) Diet Regular Basic (08/18/17 Lunch) Ibuprofen (Motrin) (08/18/17 15:15) Ed Discharge Order (08/18/17 15:14) Labs Laboratory Tests Test 08/17/17 19:53 White Blood Count 11.4 TH/MM3 Red Blood Count 4.64 MIL/MM3 Hemoglobin 13.4 GM/DL Hematocrit 41.2 % Mean Corpuscular Volume 88.8 FL Mean Corpuscular Hemoglobin 28.8 PG Mean Corpuscular Hemoglobin Concent 32.5 % Red Cell Distribution Width 15.0 % Platelet Count 342 TH/MM3 Mean Platelet Volume 9.9 FL Neutrophils (%) (Auto) 70.2 % Lymphocytes (%) (Auto) 16.9 % Monocytes (%) (Auto) 10.5 % Eosinophils (%) (Auto) 2.1 % Basophils (%) (Auto) 0.3 % Neutrophils # (Auto) 8.0 TH/MM3 Lymphocytes # (Auto) 1.9 TH/MM3 Monocytes # (Auto) 1.2 TH/MM3 Eosinophils # (Auto) 0.2 TH/MM3 Basophils # (Auto) 0.0 TH/MM3 CBC Comment DIFF FINAL Differential Comment Blood Urea Nitrogen 11 MG/DL Creatinine 1.28 MG/DL Random Glucose 109 MG/DL Total Protein 8.4 GM/DL Albumin 4.2 GM/DL Calcium Level 8.9 MG/DL Alkaline Phosphatase 85 U/L Aspartate Amino Transf (AST/SGOT) 31 U/L Alanine Aminotransferase (ALT/SGPT) 33 U/L Total Bilirubin 1.1 MG/DL Sodium Level 139 MEQ/L Potassium Level 3.6 MEQ/L Chloride Level 103 MEQ/L Carbon Dioxide Level 28.9 MEQ/L Anion Gap 7 MEQ/L Estimat Glomerular Filtration Rate 76 ML/MIN Urine Opiates Screen NEG Urine Barbiturates Screen NEG Urine Amphetamines Screen NEG Urine Benzodiazepines Screen NEG Urine Cocaine Screen POS Urine Cannabinoids Screen NEG MDM Supervised Visit with JAMESON: No Diagnosis Primary Impression: Major depressive disorder Qualified Codes: F33.9 - Major depressive disorder, recurrent, unspecified Scripts No Active Prescriptions or Reported Meds Wilma Dominguez MD Aug 18, 2017 15:16
[2017-08-18] MEDS ORDERED: CITA20TA4 PO (15:24)
[2017-08-18] MEDS ORDERED: PRAZ1CAP PO (15:26)
== END 2017-08-18 16:45 | disposition home or self-care (01) ==
LOC: NEPD 19:04 → NEPJ 08-18 16:45
DX: F33.9 Major depressive disorder, recurrent, unspecified (principal); R45.851 Suicidal ideations; F19.94 Other psychoactive substance use, unspecified with psychoactive substance-induced mood disorder; F41.9 Anxiety disorder, unspecified; F32.9 Major depressive disorder, single episode, unspecified; E11.9 Type 2 diabetes mellitus without complications; K21.9 Gastro-esophageal reflux disease without esophagitis; I10 Essential (primary) hypertension; F17.200 Nicotine dependence, unspecified, uncomplicated
CPT/HCPCS: 80053; 80307; 85025; 99284

== ENCOUNTER 2017-09-14 07:28 | Emergency (ER) | payer SELFPAY ==
[~2017-09-14] VITALS: Ht 175.3 cm; Wt 100.0 kg
[~2017-09-14 07:28] MED LIST changes: -AMOX500T PO; +CITA20TA4 PO; -DICL75TA PO; +PRAZ1CAP PO
[2017-09-14 07:29] VITALS: BP 159/81; PULSE 73; RESP 17; TEMP 97.9; O2SAT 97
[2017-09-14] MEDS ORDERED: predniSONE 20 MG TAB PO ONE (08:00)
[2017-09-14] MEDS ORDERED: KETOROLAC TROMETHAMINE 60 MG/2 ML (IM) VIAL IM ONE (08:00)
[2017-09-14] MEDS ORDERED: ORPHENADRINE INJ 60 MG/2 ML AMP IM ONE (08:00)
[2017-09-14] MEDS ORDERED: CYCL10TA PO (09:15)
[2017-09-14] MEDS ORDERED: TRAM50TA PO ×2 (09:15→09:24)
[2017-09-14] MEDS ORDERED: PRED10PA PO (09:15)
--- NOTE | 2017-09-14 09:24 | PD ---
HPI Chief Complaint: Pain: Acute or Chronic Time Seen by Provider: 07:52 Travel History International Travel<30 days: No Contact w/Intl Traveler<30days: No Traveled to known affect area: No History of Present Illness HPI 36-year-old -N[place]e male presents emergency department 3 day history of worsening right shoulder and neck pain with radicular pain into the right arm. 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 He states he has had pain in the right shoulder off and on for the past 2 weeks but has been much worse in the last 3 days. He denies weakness. He has history of rotator cuff surgery, but he does not feel that the shoulder itself is sore but more the upper trapezius and the upper back. He has no weakness in the superannuation funds manager or forearm as well. Pain is 8 out of 10, and worse when he woke up this morning. He states it is worse with cough or sneeze. She states the pain is somewhat relieved by placing his hand up on top of his head. He has no known drug allergies. [facility] Past Medical History Hx Anticoagulant Therapy: No Anxiety: Yes Depression: Yes Cancer: No Cardiovascular Problems: Yes Chemotherapy: No Cerebrovascular Accident: No Diabetes: Yes (no meds) Patient Takes Glucophage: No Diminished Hearing: No Endocrine: Yes Gastrointestinal Disorders: Yes GERD: Yes Genitourinary: No Hypertension: Yes Immune Disorder: No Musculoskeletal: No Neurologic: No Psychiatric: Yes (Depression) Reproductive: No Respiratory: No Tetanus Vaccination: < 5 Years Influenza Vaccination: Yes Past Surgical History Surgical History: No Previous Surgery Other Surgery: No Social History Alcohol Use: Yes (twice weekly beer all day) Tobacco Use: Yes (1/2 ppd) Substance Use: Yes (COCAINE) Allergies-Medications (Allergen,Severity, Reaction): Coded Allergies: No Known Allergies (Unverified Adverse Reaction, Unknown, 09/14/17) Reported Meds & Prescriptions Reported Meds & Active Scripts Active Prednisone (21) 10 mg tab Dose Pack (Prednisone) 10 Mg Pack 10 Mg PO DIRECTED Tramadol (Tramadol HCl) 50 Mg Tab 50 Mg PO Q6H PRN Flexeril (Cyclobenzaprine HCl) 10 Mg Tab 10 Mg PO TID Review of Systems Except as stated in HPI: all other systems reviewed are Neg General / Constitutional: No: Fever Eyes: No: Visual changes HENT: No: Headaches Cardiovascular: No: Chest Pain or Discomfort Respiratory: No: Shortness of Breath Gastrointestinal: No: Abdominal Pain Genitourinary: No: Dysuria Musculoskeletal: Positive: Myalgias, Arthralgias, Limited ROM, Pain Skin: No Rash Neurologic: No: Weakness Psychiatric: No: Depression Endocrine: No: Polydipsia Hematologic/Lymphatic: No: Easy Bruising Physical Exam Narrative GENERAL: Patient appears in mild to moderate distress SKIN: Warm and dry. Normal color. Normal turgor. No rash. HEAD: Atraumatic. Normocephalic. EYES: Pupils equal and round. No scleral icterus. No injection or drainage. ENT: No nasal bleeding or discharge. Mucous membranes pink and moist. NECK: Trachea midline. No specific bony tenderness. Pain with palpation along the right paraspinous and scalenes into the trapezius. CARDIOVASCULAR: Regular rate and rhythm. RESPIRATORY: No accessory muscle use. Clear to auscultation. Breath sounds equal bilaterally. GASTROINTESTINAL: Abdomen soft, non-tender, nondistended. Hepatic and splenic margins not palpable. MUSCULOSKELETAL: Extremities without clubbing, cyanosis, or edema. No obvious deformities. Patient is full range of motion of the right shoulder within the shoulder girdle. No weakness is noted with superannuation funds manager strength, flexion or extension of the elbow, or with range of motion of the shoulder itself. NEUROLOGICAL: Awake and alert. No obvious cranial nerve deficits. Motor grossly within normal limits. Five out of 5 muscle strength in the arms and legs. Normal speech. PSYCHIATRIC: Appropriate mood and affect; insight and judgment normal. Data Data Last Documented VS Vital Signs Date Time Temp Pulse Resp B/P (MAP) Pulse Ox O2 Delivery O2 Flow Rate FiO2 09/14/17 07:29 97.9 73 17 159/81 (107) 97 Orders Orders Ketorolac Inj (Toradol Inj) (09/14/17 08:00) Orphenadrine Inj (Norflex Inj) (09/14/17 08:00) Prednisone (Deltasone) (09/14/17 08:00) [facility] Medical Decision Making Medical Screen Exam Complete: Yes Emergency Medical Condition: Yes Differential Diagnosis Neck pain. Shoulder pain. Radiculopathy. Torticollis. Narrative Course Patient is given 60 mg of Norflex IM, as well as 60 mg Toradol IM. Radiographic imaging is not felt warranted at this time based on the patient's history and physical. Patient did have some relief with the above treatment. Patient will be continued on prednisone Dosepak as prescribed. Patient given Flexeril 10 mg up to 3 times daily as needed muscle spasm #15 Patient also given tramadol 50 mg 1 every 6 hours as needed pain #20. Patient is to use heat, followed by ice, and gentle stretching. Patient given a work note with limited lifting 1 week. Patient is to follow up with local primary care physician or return to emergency department if worsening. Diagnosis Primary Impression: Radicular pain in right arm Referrals: [facility] Primary Care Physician Patient Instructions: General Instructions Departure Forms: Work Release Enter return to work date: Sep 15, 2017 Special Instructions: No lifting greater than 10 pounds 1 week. Additional Instructions: Patient will be continued on prednisone Dosepak as prescribed. Patient given Flexeril 10 mg up to 3 times daily as needed muscle spasm #15 Patient also given tramadol 50 mg 1 every 6 hours as needed pain #20. Patient is to use heat, followed by ice, and gentle stretching. Patient given a work note with limited lifting 1 week. Patient is to follow up with local primary care physician or return to emergency department if worsening. Med/Other Pt SpecificInfo: Prescription(s) given Scripts Prednisone (21) 10 mg tab Dose Pack (Prednisone (21) 10 mg tab Dose Pack) 10 Mg Pack 10 MG PO DIRECTED for Inflammation, #1 DSPK 0 Refills Prov: Eliezer Mcelroy MD 09/14/17 Tramadol (Tramadol) 50 Mg Tab 50 MG PO Q6H Y for PAIN, #20 TAB 0 Refills Prov: Eliezer Mcelroy MD 09/14/17 Cyclobenzaprine (Flexeril) 10 Mg Tab 10 MG PO TID for Muscle Spasm, #15 TAB 0 Refills Prov: Eliezer Mcelroy MD 09/14/17 Disposition: 01 DISCHARGE HOME Condition: Stable Alcides Law Sep 14, 2017 09:24
== END 2017-09-14 09:35 | disposition home or self-care (01) ==
LOC: NEPD 07:28
DX: M79.601 Pain in right arm (principal); M25.511 Pain in right shoulder; F17.200 Nicotine dependence, unspecified, uncomplicated
CPT/HCPCS: 96372; 99283; J1885; J2360; J7512

== ENCOUNTER 2017-09-20 12:07 | Emergency (ER) | payer SELFPAY ==
[~2017-09-20] VITALS: Ht 175.3 cm; Wt 98.0 kg
[~2017-09-20 12:07] MED LIST changes: -CITA20TA4 PO; +CYCL10TA PO; -PRAZ1CAP PO; +PRED10PA PO; +TRAM50TA PO
[2017-09-20 12:10] VITALS: BP 165/92; PULSE 87; RESP 13; TEMP 98.1; O2SAT 98
[2017-09-20] MEDS ORDERED: PRED10PA2 PO (12:43)
[2017-09-20] MEDS ORDERED: CYCL10TA PO (12:43)
--- NOTE | 2017-09-20 13:01 | PD ---
HPI . Shoulder pain Chief Complaint: Pain: Acute or Chronic Time Seen by Provider: 12:21 Travel History International Travel<30 days: No Contact w/Intl Traveler<30days: No Traveled to known affect area: No History of Present Illness HPI Patient presents for a second evaluation of right shoulder pain. He was evaluated here on 09/14 for same. He reports atraumatic right shoulder pain which has been getting progressively worse since then. Pain is exacerbated by movement. Pain was initially rated 10/10 but is now rated 6/10. There has been no treatment in the interim to cause improvement in his pain. Patient states that he received his prescription for tramadol when he was here on the but did not receive his prescriptions for prednisone and Flexeril. PFSH Past Medical History Hx Anticoagulant Therapy: No Anxiety: Yes Depression: Yes Cancer: No Cardiovascular Problems: Yes Chemotherapy: No Cerebrovascular Accident: No Diabetes: Yes (no meds) Diminished Hearing: No Endocrine: Yes Gastrointestinal Disorders: Yes GERD: Yes Genitourinary: No Hypertension: Yes Immune Disorder: No Musculoskeletal: No Neurologic: No Psychiatric: Yes (Depression) Reproductive: No Respiratory: No Past Surgical History Surgical History: No Previous Surgery Other Surgery: No Social History Alcohol Use: Yes Tobacco Use: Yes (08/11 ppd) Substance Use: Yes (COCAINE) Allergies-Medications (Allergen,Severity, Reaction): Coded Allergies: No Known Allergies (Unverified Adverse Reaction, Unknown, 09/20/17) Reported Meds & Prescriptions Reported Meds & Active Scripts Active Prednisone (48) 10 mg tab Dose Pack (Prednisone) 10 Mg Dspk 10 Mg PO DIRECTED Flexeril (Cyclobenzaprine HCl) 10 Mg Tab 10 Mg PO TID Tramadol (Tramadol HCl) 50 Mg Tab 50 Mg PO Q6H PRN Prednisone (21) 10 mg tab Dose Pack (Prednisone) 10 Mg Pack 10 Mg PO DIRECTED Review of Systems Except as stated in HPI: all other systems reviewed are Neg Musculoskeletal: Positive: Myalgias, No: Limited ROM Physical Exam Narrative GENERAL: Awake and alert and in no acute distress. SKIN: Warm and dry. HEAD: Normocephalic/atraumatic. EYES: Pupils are equal. Extraocular movements are intact. NECK: Normal range of motion. RESPIRATORY: Nonlabored respirations. MUSCULOSKELETAL: Minimal tenderness of the right trapezius. Full range of motion of the right shoulder noted. Distally neurovascularly intact. NEUROLOGICAL: Nonfocal. PSYCHIATRIC: Appropriate mood and affect. Data Data Last Documented VS Vital Signs Date Time Temp Pulse Resp B/P (MAP) Pulse Ox O2 Delivery O2 Flow Rate FiO2 09/20/17 12:10 98.1 87 13 165/92 (116) 98 Orders Orders Ed Discharge Order (09/20/17 12:45) MDM Medical Decision Making Medical Screen Exam Complete: Yes Emergency Medical Condition: Yes Differential Diagnosis My differential diagnosis of muscle pain includes but is not limited to overuse , muscle spasm, strain Narrative Course Patient presents complaining with continued right shoulder pain. He is complaining with pain in his right trapezius. His physical exam is very benign. He said he did not receive prescriptions for prednisone and Flexeril on his previous visit as prescribed. He states that he only received tramadol. I have written him prescriptions for prednisone and Flexeril. Diagnosis Primary Impression: Strain of right trapezius muscle Qualified Codes: S46.811D - Strain of other muscles, fascia and tendons at shoulder and upper arm level, right arm, subsequent encounter Patient Instructions: General Instructions, Muscle Spasm (ED) Departure Forms: Tests/Procedures Scripts Prednisone (48) 10 mg tab Dose Pack (Prednisone (48) 10 mg tab Dose Pack) 10 Mg Dspk 10 MG PO DIRECTED for Inflammation, #1 DSPK 0 Refills Prov: Wilma Dominguez MD 09/20/17 Cyclobenzaprine (Flexeril) 10 Mg Tab 10 MG PO TID for Muscle Spasm, #15 TAB 0 Refills Prov: Wilma Dominguez MD 09/20/17 Disposition: 01 DISCHARGE HOME Wilma Dominguez MD Sep 20, 2017 13:01
== END 2017-09-20 13:06 | disposition home or self-care (01) ==
LOC: NEPD 12:07
DX: S46.811D Strain of other muscles, fascia and tendons at shoulder and upper arm level, right arm, subsequent encounter (principal); F41.9 Anxiety disorder, unspecified; F32.9 Major depressive disorder, single episode, unspecified; K21.9 Gastro-esophageal reflux disease without esophagitis; I10 Essential (primary) hypertension; E11.9 Type 2 diabetes mellitus without complications; F17.200 Nicotine dependence, unspecified, uncomplicated; X58.XXXD Exposure to other specified factors, subsequent encounter
CPT/HCPCS: 99283